=== PATIENT | male | born 1985 | race Caucasian/White ===

== ENCOUNTER 2018-08-29 22:02 | Emergency (ER) | payer OTHER, SELFPAY ==
--- NOTE | 2018-08-29 23:19 | EDPHYS ---
Physician Documentation [facility] Name: Danyel Guy Age: 32 yrs Sex: Male : 1985 Arrival Date: 08/29/2018 Time: 22:19 Bed 28 Private MD: ED Physician Jhonathan Watts HPI: 08/29 23:14 This 32 yrs old Male presents to ER via Ambulatory with complaints of unable jr8 to close hands. 23:14 Onset: The symptoms/episode began/occurred acutely, today. Modifying factors: The jr8 symptoms are alleviated by nothing, the symptoms are aggravated by movement. Associated signs and symptoms: The patient has no apparent associated signs or symptoms. The patient has not experienced similar symptoms in the past. Patient stated that he was moving heavy box and felt his hands near his thumbs pop on both sides. Since then has had pain and decreased ROM to both hands . Historical: - Allergies: 22:41 No Known Allergies; bb - Home Meds: 22:41 None [Active]; bb - PMHx: 22:41 Diabetes - NIDDM; bb - PSHx: 22:41 Tonsillectomy; bb - Immunization history:: Adult Immunizations up to date. - Social history:: Smoking status: Patient uses tobacco products, 3 cigarettes a day, Patient uses street drugs, marijuana. - Ebola Screening: : No symptoms or risks identified at this time. ROS: 23:14 Eyes: Negative for injury, pain, redness, and discharge, ENT: Negative for injury, jr8 pain, and discharge, Neck: Negative for injury, pain, and swelling, Cardiovascular: Negative for chest pain, palpitations, and edema, Respiratory: Negative for shortness of breath, cough, wheezing, and pleuritic chest pain, Abdomen/GI: Negative for abdominal pain, nausea, vomiting, diarrhea, and constipation, Back: Negative for injury and pain, Skin: Negative for injury, rash, and discoloration, Neuro: Negative for headache, weakness, numbness, tingling, and seizure. 23:14 MS/extremity: Positive for pain, tenderness, of the right hand and left hand. Exam: 23:14 Eyes: Pupils equal round and reactive to light, extra-ocular motions intact. Lids and jr8 lashes normal. Conjunctiva and sclera are non-icteric and not injected. Cornea within normal limits. Periorbital areas with no swelling, redness, or edema. ENT: Nares patent. No nasal discharge, no septal abnormalities noted. Tympanic membranes are normal and external auditory canals are clear. Oropharynx with no redness, swelling, or masses, exudates, or evidence of obstruction, uvula midline. Mucous membranes moist. Neck: Trachea midline, no thyromegaly or masses palpated, and no cervical lymphadenopathy. Supple, full range of motion without nuchal rigidity, or vertebral point tenderness. No Meningismus. Cardiovascular: Regular rate and rhythm with a normal S1 and S2. No gallops, murmurs, or rubs. Normal PMI, no JVD. No pulse deficits. Respiratory: Lungs have equal breath sounds bilaterally, clear to auscultation and percussion. No rales, rhonchi or wheezes noted. No increased work of breathing, no retractions or nasal flaring. Abdomen/GI: Soft, non-tender, with normal bowel sounds. No distension or tympany. No guarding or rebound. No evidence of tenderness throughout. Back: No spinal tenderness. No costovertebral tenderness. Full range of motion. Skin: Warm, dry with normal turgor. Normal color with no rashes, no lesions, and no evidence of cellulitis. Neuro: Awake and alert, GCS 15, oriented to person, place, time, and situation. Cranial nerves II-XII grossly intact. Motor strength 5/5 in all extremities. Sensory grossly intact. Cerebellar exam normal. Normal gait. 23:14 Musculoskeletal/extremity: Extremities: grossly normal except: noted in the left hand and right hand: Patient has tenderness to the MCP and CMC with external signs of trauma to both hands. Pain with ROM but not decreased. Sensory and pulses intact. Vital Signs: 22:41 BP 127 / 99; Pulse 73; Resp 16 S; Temp 98.5(O); Pulse Ox 99% on R/A; Weight 91.17 kg bb (R); Height 5 ft. 5 in. (165.10 cm) (R); Pain 7/10; 22:41 Body Mass Index 33.45 (91.17 kg, 165.10 cm) bb MDM: 23:14 Patient medically screened. [facility] 23:14 Data reviewed: vital signs, nurses notes, and as a result, I will discharge patient. jr8 Data interpreted: Pulse oximetry: on room air is 99 %. Interpretation: normal. Counseling: I had a detailed discussion with the patient and/or guardian regarding: the historical points, exam findings, and any diagnostic results supporting the discharge/admit diagnosis, the need for outpatient follow up, a hand specialist, to return to the emergency department if symptoms worsen or persist or if there are any questions or concerns that arise at home. Administered Medications: No medications were administered Disposition: 08/29/18 23:18 Discharged to Home. Impression: Pain in right hand, Pain in left hand. - Condition is Stable. - Discharge Instructions: Hand Pain. - Prescriptions for Mobic 15 mg Oral tablet - take 1 tablet by ORAL route once daily As needed; 12 tablet. - Medication Reconciliation Form, Thank You Letter, Antibiotic Education, Prescription Opioid Use form. - Follow up: Private Physician; When: 5 - 6 days; Reason: Recheck today's complaints, Continuance of care, Re-evaluation by your physician. - Problem is new. - Symptoms have improved. Addendum: 08/31/2018 01:30 Co-signature as Attending Physician, Jhonathan Watts MD. g s Signatures: Audra Meeir RN RN bb Rodney Moore PA PA jr8 Jhonathan Watts MD MD gs Vicente, Ronaldo, RN RN rv Corrections: (The following items were deleted from the chart) 08/29 23:23 23:18 08/29/2018 23:18 Discharged to Home. Impression: Pain in right hand; Pain in left rv hand. Condition is Stable. Forms are Medication Reconciliation Form, Thank You Letter, Antibiotic Education, Prescription Opioid Use. Follow up: Private Physician; When: 5 - 6 days; Reason: Recheck today's complaints, Continuance of care, Re-evaluation by your physician. Problem is new. Symptoms have improved. jr8
--- NOTE | 2018-08-29 23:19 | ER ---
Nurse's Notes [facility] Name: Danyel Guy Age: 32 yrs Sex: Male : 1985 Arrival Date: 08/29/2018 Time: 22:19 Bed 28 Private MD: Diagnosis: Pain in right hand;Pain in left hand Presentation: 08/29 22:39 Presenting complaint: Patient states: he has been having bilateral hand pain for about bb a month now but tonight he was lifting a box and felt something pop in the base of both thumbs and the pain is much worse to the point he is having difficulty closing his hands. Transition of care: patient was not received from another setting of care. Onset of symptoms was August 29, 2018. Risk Assessment: Do you want to hurt yourself or someone else? Patient reports no desire to harm self or others. Initial Sepsis Screen: Does the patient meet any 2 criteria? No. Patient's initial sepsis screen is negative. Does the patient have a suspected source of infection? No. Patient's initial sepsis screen is negative. Care prior to arrival: None. 22:39 Method Of Arrival: Ambulatory bb 22:39 Acuity: WILLIAM 3 bb Historical: - Allergies: 22:41 No Known Allergies; bb - Home Meds: 22:41 None [Active]; bb - PMHx: 22:41 Diabetes - NIDDM; bb - PSHx: 22:41 Tonsillectomy; bb - Immunization history:: Adult Immunizations up to date. - Social history:: Smoking status: Patient uses tobacco products, 3 cigarettes a day, Patient uses street drugs, marijuana. - Ebola Screening: : No symptoms or risks identified at this time. Screenin:22 Abuse screen: Denies threats or abuse. Denies injuries from another. Nutritional rv screening: No deficits noted. Tuberculosis screening: No symptoms or risk factors identified. Fall Risk None identified. Assessment: 23:21 General: Appears in no apparent distress. comfortable, Behavior is calm, cooperative. rv Pain: Complains of pain in left hand and right hand. Neuro: Level of Consciousness is awake, alert, obeys commands, Oriented to person, place, time, situation. Cardiovascular: Capillary refill < 3 seconds. Respiratory: Airway is patent. GI: No signs and/or symptoms were reported involving the gastrointestinal system. : No signs and/or symptoms were reported regarding the genitourinary system. EENT: No signs and/or symptoms were reported regarding the EENT system. Derm: Skin is intact. Musculoskeletal: Reports pain in left hand and right hand. Vital Signs: 22:41 BP 127 / 99; Pulse 73; Resp 16 S; Temp 98.5(O); Pulse Ox 99% on R/A; Weight 91.17 kg bb (R); Height 5 ft. 5 in. (165.10 cm) (R); Pain 7/10; 22:41 Body Mass Index 33.45 (91.17 kg, 165.10 cm) bb ED Course: 22:19 Patient arrived in ED. es 22:40 Triage completed. bb 22:41 Arm band placed on Patient placed in an exam room, on a stretcher, on pulse oximetry. bb Family accompanied patient. 22:50 Rodney Moore PA is PHCP. jr 22:50 Jhonathan Watts MD is Attending Physician. jr 22:53 Parish Thomas RN is Primary Nurse. rv 23:22 Patient has correct armband on for positive identification. Bed in low position. Call rv light in reach. Side rails up X 1. Adult w/ patient. Pulse ox on. NIBP on. 23:22 No provider procedures requiring assistance completed. Patient did not have IV access rv during this emergency room visit. Administered Medications: No medications were administered Outcome: 23:18 Discharge ordered by . jr8 23:22 Discharged to home ambulatory. rv 23:22 Condition: good 23:22 Discharge instructions given to patient, Instructed on discharge instructions, follow up and referral plans. medication usage, Demonstrated understanding of instructions, follow-up care, medications, Prescriptions given X 1. 23:23 Patient left the ED. rv Signatures: Snow Mcgrath Brenda, RN RN bb Rodney Moore PA PA jr8 Parish Thomas RN RN rv
[2018-08-29 23:28] VITALS: BP 127/99; TEMP 98.5; O2SAT 99
== END 2018-08-29 23:23 | disposition home or self-care (01) ==
LOC: ER 22:02
DX: M79.642 Pain in left hand (principal); M79.641 Pain in right hand; E11.9 Type 2 diabetes mellitus without complications; Z72.0 Tobacco use
CPT/HCPCS: 99283

== ENCOUNTER 2019-08-19 10:42 | Emergency (ER) | payer OTHER, SELFPAY ==
[2019-08-19] MEDS ORDERED: DIAZEPAM 5 MG TABLET ONE (11:17)
--- NOTE | 2019-08-19 11:49 | RAD REPORT ---
EXAM DESCRIPTION: RAD - Chest Single View - 08/19/2019 11:24 am CLINICAL HISTORY: SOB COMPARISON: March 2014 TECHNIQUE: AP portable chest image was obtained 08/19/2019 11:24 am . FINDINGS: Lungs are underinflated which accentuates the interstitial pattern. This could potentially mask a very minimal edema or infiltrate. No significant failure or volume overload. No mass or conso lidations seen. Heart size is upper normal, accentuated by portable technique and shallow inspiration. Vasculature wi thin normal limits. No measurable pleural effusion and no pneumothorax. No acute bony abnormality see n. No acute aortic findings suspected. IMPRESSION: Limited shallow inspiration film without significant cardiopulmonary finding. Low lung volumes accentuate the baseline interstitial pattern potentially masking very minimal edema or infiltrate.
--- NOTE | 2019-08-19 12:24 | RAD REPORT ---
EXAM DESCRIPTION: RAD - Chest Pa And Lat (2 Views) - 08/19/2019 12:11 pm CLINICAL HISTORY: DYSPNEA COMPARISON: Portable August 18, two view chest March 2014 TECHNIQUE: Frontal and lateral views of the chest were obtained. FINDINGS: The lungs are better aerated on this two-view examination. No mass, consolidation, failure or volume overload. Interstitial pattern matches the 2014 comparison. Heart size is normal and misael tral vasculature is within normal limits. No pleural effusion or pneumothorax seen. No acute bony f inding noted. No aortic abnormality. IMPRESSION: Lungs are better aerated than earlier study. No acute cardiopulmonary finding seen. No significant changes are noted when comparing back to 2013.
--- NOTE | 2019-08-19 12:56 | ER ---
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 Pt also reports aa5 headache and catrina arm pain. 10:46 Coronavirus screen: Patient denies a cough. Patient reports shortness of breath or aa5 difficulty breathing. Patient denies measured and/or subjective temperature greater than 100.4F prior to today's visit. Patient denies travel on a cruise ship or to a country the [facility] currently lists as an affected area. Patient denies contact with known and/or suspected case of COVID-19. Ebola Screen: Patient negative for fever greater than or equal to 101.5 degrees Fahrenheit, and additional compatible Ebola Virus Disease symptoms. Initial Sepsis Screen: Does the patient meet any 2 criteria? RR > 20 per min. Does the patient have a suspected source of infection? No. Patient's initial sepsis screen is negative. Risk Assessment: Do you want to hurt yourself or someone else? Patient reports no desire to harm self or others. Onset of symptoms was August 2019. 10:46 Method Of Arrival: Ambulatory aa5 10:46 Acuity: WILLIAM 3 aa5 Historical: - Allergies: 10:46 No Known Allergies; aa5 - PMHx: 10:46 Diabetes - NIDDM; "mental illness"; aa5 - PSHx: 10:46 Tonsillectomy; aa5 - Immunization history:: Flu vaccine status is unknown. - Social history:: Smoking status: Patient reports the use of cigarette tobacco products, 1 pack a week/ quit 1 month ago . Screenin:06 Abuse screen: Denies threats or abuse. Nutritional screening: No deficits noted. em Tuberculosis screening: No symptoms or risk factors identified. Fall Risk None identified. Assessment: 11:07 General: Appears in no apparent distress. uncomfortable, well groomed, well developed, em well nourished, Behavior is calm, cooperative, appropriate for age, Reports feeling anxious, reports similar episode Denies fever. Pain: Complains of pain in right arm and left arm Pain currently is 5 out of 10 on a pain scale. Pain began 1 hour ago. Neuro: Level of Consciousness is awake, alert, obeys commands, Oriented to person, place, time, situation, Appropriate for age Reports dizziness, headache. Cardiovascular: Reports shortness of breath, Denies chest pain, Capillary refill < 3 seconds Patient's skin is warm and dry. Rhythm is regular. Respiratory: Reports shortness of breath at rest Airway is patent Respiratory effort is even, unlabored, Respiratory pattern is regular, symmetrical, Breath sounds are clear bilaterally. Denies cough. GI: Patient currently denies nausea, vomiting. Derm: Skin is intact, is healthy with good turgor, Skin is pink, warm \\T\\ dry. Musculoskeletal: Capillary refill < 3 seconds, Range of motion: intact in all extremities. 12:02 Reassessment: wheeled to x-ray. em 12:23 Reassessment: Patient appears in no apparent distress at this time. Patient and/or em family updated on plan of care and expected duration. Pain level reassessed. Patient is alert, oriented x 3, equal unlabored respirations, skin warm/dry/pink. Patient states feeling better. Vital Signs: 10:46 BP 135 / 89; Pulse 88; Resp 16 S; Temp 98.3(O); Pulse Ox 99% on R/A; Weight 97.52 kg aa5 (R); Height 5 ft. 5 in. (165.10 cm) (R); Pain 5/10; 11:53 BP 127 / 83; Pulse 80; Resp 16; Temp 98.5(TE); Pulse Ox 97% on R/A; mh5 12:53 BP 106 / 53; Pulse 80; Resp 16; Temp 97.9(TE); Pulse Ox 98% on R/A; mh5 10:46 Body Mass Index 35.78 (97.52 kg, 165.10 cm) aa5 ED Course: 10:43 Patient arrived in ED. mr 10:44 None, None is Private Physician. mr 10:46 Arm band placed on Patient placed in an exam room, on a stretcher. aa5 10:47 Luis Riley RN is Primary Nurse. em 10:50 Miller Gallardo MD is Attending Physician. kdr 10:56 Triage completed. aa5 11:06 Patient has correct armband on for positive identification. Placed in gown. Bed in low em position. Call light in reach. Pulse ox on. NIBP on. 11:10 Flu and/or RSV swab sent to lab. sg 11:24 CXR XRAY In Process Unspecified. EDMS 12:08 Chest Pa And Lat (2 Views) XRAY In Process Unspecified. EDMS 13:20 No provider procedures requiring assistance completed. Patient did not have IV access em during this emergency room visit. Administered Medications: 11:14 Drug: Valium 5 mg Route: PO; em 12:23 Follow up: Response: No adverse reaction; Marked relief of symptoms; Anxiety decreased em Outcome: 12:55 Discharge ordered by . kdr 13:20 Discharged to home ambulatory. em 13:20 Condition: good 13:20 Discharge instructions given to patient, Instructed on discharge instructions, follow up and referral plans. Demonstrated understanding of instructions, follow-up care. 13:20 Patient left the ED. em Signatures: Dispatcher [employer] EDMI Josue Pruitt, EWELINA RN Miller Gallardo MD MD kdr Rivera, Mary mr Munoz, Edgar, RN RN Nisa Leal RN RN wild Lucie Couch [facility] Corrections: (The following items were deleted from the chart) 10:53 10:40 Arm band placed on aa5 aa5 11:09 11:07 General: Appears in no apparent distress. uncomfortable, well groomed, well em developed, well nourished, Behavior is calm, cooperative, appropriate for age, Denies fever, em 12:02 12:01 Reassessment: Patient appears in no apparent distress at this time. Patient em and/or family updated on plan of care and expected duration. Pain level reassessed. Patient is alert, oriented x 3, equal unlabored respirations, skin warm/dry/pink. nausea has improved em
--- NOTE | 2019-08-19 12:57 | EDPHYS ---
Physician Documentation [facility] Name: Danyel Guy Age: 33 yrs Sex: Male : 1985 Arrival Date: 08/19/2019 Time: 10:43 Bed 5 Private MD: None, None ED Physician Miller Gallardo HPI: 08/18 11:27 This 33 yrs old Male presents to ER via Ambulatory with complaints of kdr Breathing Difficulty, Dizziness. 11:27 The patient has shortness of breath at rest, with light activity, that occurred at kdr work, Works in the [employer]. Onset: The symptoms/episode began/occurred suddenly, this morning. Duration: The symptoms are continuous, and are unchanged since they started. The patient's shortness of breath is aggravated by nothing, is alleviated by nothing. Associated signs and symptoms: The patient has no apparent associated signs or symptoms. Severity of symptoms: At their worst the symptoms were moderate in the emergency department the symptoms are unchanged. The patient has not experienced similar symptoms in the past. The patient has not recently seen a physician. Has had anxiety attacks before but states that this does not feel like anxiety - just can't get his breath.. Historical: - Allergies: 10:46 No Known Allergies; aa5 - PMHx: 10:46 Diabetes - NIDDM; "mental illness"; aa5 - PSHx: 10:46 Tonsillectomy; aa5 - Immunization history:: Flu vaccine status is unknown. - Social history:: Smoking status: Patient reports the use of cigarette tobacco products, 1 pack a week/ quit 1 month ago . ROS: 11:27 Constitutional: Negative for fever, chills, and weight loss, Eyes: Negative for injury, kdr pain, redness, and discharge, ENT: Negative for injury, pain, and discharge, Neck: Negative for injury, pain, and swelling, Cardiovascular: Negative for chest pain, palpitations, and edema, Abdomen/GI: Negative for abdominal pain, nausea, vomiting, diarrhea, and constipation, Back: Negative for injury and pain, : Negative for injury, bleeding, discharge, and swelling, MS/Extremity: Negative for injury and deformity, Skin: Negative for injury, rash, and discoloration, Neuro: Negative for headache, weakness, numbness, tingling, and seizure activity. Psych: Negative for depression, anxiety, suicide ideation, homicidal ideation, and hallucinations, Allergy/Immunology: Negative for hives, rash, and allergies, Endocrine: Negative for neck swelling, polydipsia, polyuria, polyphagia, and marked weight changes, Hematologic/Lymphatic: Negative for swollen nodes, abnormal bleeding, and unusual bruising. 11:27 Respiratory: Positive for shortness of breath, Negative for cough, dyspnea on exertion, hemoptysis, orthopnea, pleurisy, sputum production, wheezing. Exam: 11:27 Constitutional: This is a well developed, well nourished patient who is awake, alert, kdr and in mild distress. Head/Face: Normocephalic, atraumatic. Eyes: Pupils equal round and reactive to light, extra-ocular motions intact. Lids and lashes normal. Conjunctiva and sclera are non-icteric and not injected. Cornea within normal limits. Periorbital areas with no swelling, redness, or edema. Neck: Trachea midline, no thyromegaly or masses palpated, and no cervical lymphadenopathy. Supple, full range of motion without nuchal rigidity, or vertebral point tenderness. No Meningismus. Chest/axilla: Normal chest wall appearance and motion. Nontender with no deformity. No lesions are appreciated. Cardiovascular: Regular rate and rhythm with a normal S1 and S2. No gallops, murmurs, or rubs. Normal PMI, no JVD. No pulse deficits. Respiratory: Lungs have equal breath sounds bilaterally, clear to auscultation and percussion. No rales, rhonchi or wheezes noted. No increased work of breathing, no retractions or nasal flaring. Abdomen/GI: Soft, non-tender, with normal bowel sounds. No distension or tympany. No guarding or rebound. No evidence of tenderness throughout. Back: No spinal tenderness. No costovertebral tenderness. Full range of motion. Skin: Warm, dry with normal turgor. Normal color with no rashes, no lesions, and no evidence of cellulitis. MS/ Extremity: Pulses equal, no cyanosis. Neurovascular intact. Full, normal range of motion. Neuro: Awake and alert, GCS 15, oriented to person, place, time, and situation. Cranial nerves II-XII grossly intact. Motor strength 5/5 in all extremities. Sensory grossly intact. Cerebellar exam normal. Normal gait. Psych: Awake, alert, with orientation to person, place and time. Behavior, mood, and affect are within normal limits. Vital Signs: 10:46 BP 135 / 89; Pulse 88; Resp 16 S; Temp 98.3(O); Pulse Ox 99% on R/A; Weight 97.52 kg aa5 (R); Height 5 ft. 5 in. (165.10 cm) (R); Pain 5/10; 11:53 BP 127 / 83; Pulse 80; Resp 16; Temp 98.5(TE); Pulse Ox 97% on R/A; mh5 12:53 BP 106 / 53; Pulse 80; Resp 16; Temp 97.9(TE); Pulse Ox 98% on R/A; mh5 10:46 Body Mass Index 35.78 (97.52 kg, 165.10 cm) aa5 MDM: 11:27 Data reviewed: vital signs, nurses notes, lab test result(s), radiologic studies. kdr 12:55 Patient medically screened. kdr 08/18 11:07 Order name: Flu; Complete Time: 11:55 kdr 08/18 11:07 Order name: CXR XRAY; Complete Time: 11:55 kdr 08/18 11:57 Order name: Chest Pa And Lat (2 Views) XRAY; Complete Time: 12:29 kdr Administered Medications: 11:14 Drug: Valium 5 mg Route: PO; em 12:23 Follow up: Response: No adverse reaction; Marked relief of symptoms; Anxiety decreased em Disposition: 08/19/19 12:55 Discharged to Home. Impression: Dyspnea, Anxiety disorder, unspecified. - Condition is Stable. - Discharge Instructions: Shortness of Breath, [id number], Generalized Anxiety Disorder. - Medication Reconciliation Form, Thank You Letter, Work release form form. - Follow up: Private Physician; When: 2 - 3 days; Reason: If symptoms return, Further diagnostic work-up, Recheck today's complaints, Continuance of care, Re-evaluation by your physician. - Problem is new. - Symptoms have improved. Signatures: Dispatcher [employer] EDMS Miller Gallardo MD MD [facility] Luis Riley RN RN Nisa Rivas RN RN aa5 Corrections: (The following items were deleted from the chart) 13:04 12:55 08/19/2019 12:55 Discharged to Home. Impression: Dyspnea. Condition is Stable. kdr Forms are Medication Reconciliation Form, Thank You Letter, Antibiotic Education, Prescription Opioid Use. Follow up: Private Physician; When: 2 - 3 days; Reason: If symptoms return, Further diagnostic work-up, Recheck today's complaints, Continuance of care, Re-evaluation by your physician. Problem is new. Symptoms have improved. kdr 13:20 13:04 08/19/2019 12:55 Discharged to Home. Impression: Dyspnea; Anxiety disorder, em unspecified. Condition is Stable. Discharge Instructions: Shortness of Breath, [id number], Generalized Anxiety Disorder. Forms are Medication Reconciliation Form, Thank You Letter. Follow up: Private Physician; When: 2 - 3 days; Reason: If symptoms return, Further diagnostic work-up, Recheck today's complaints, Continuance of care, Re-evaluation by your physician. Problem is new. Symptoms have improved. kdr
[2019-08-19 13:29] VITALS: BP 106/53; TEMP 97.9; O2SAT 98
== END 2019-08-19 13:20 | disposition home or self-care (01) ==
LOC: ER 10:42
DX: F41.9 Anxiety disorder, unspecified (principal); F17.210 Nicotine dependence, cigarettes, uncomplicated; E11.9 Type 2 diabetes mellitus without complications
CPT/HCPCS: 71045; 71046; 87804; 99284

== ENCOUNTER 2020-01-14 14:32 | Emergency (ER) | payer OTHER ==
[2020-01-14 16:15] LABS: Absolute Lymphocytes (CBC) 1.8 K/uL (0.7-4.9); Basophils % 0.5 % (0-1.3); Hematocrit 44.4 % (39.6-49.0); Lymphocytes % 31.4 % (15.3-44.8); MPV 9.3 fL (7.6-11.3); RBC Red Blood Cell Count 5.16 M/uL (4.33-5.43)
[2020-01-14] MEDS ORDERED: DIPHENHYDRAMINE 50 MG/ML VIAL ONE (16:21)
[2020-01-14] MEDS ORDERED: METOCLOPRAMIDE 10 MG/2mL INJ ONE (16:21)
[2020-01-14] MEDS ORDERED: KETOROLAC 30 MG/ML INJ ONE (16:22)
[2020-01-14] MEDS ORDERED: NA CHLORIDE 0.9% 1,000 ML ONE ×2 (16:22→16:55)
[2020-01-14 16:33] LABS: ALT/SGPT 40 U/L (12-78); AST/SGOT 13 U/L (15-37); Albumin 3.9 g/dL (3.4-5.0); Alkaline Phosphatase 54 U/L (45-117); BUN Blood Urea Nitrogen 14 mg/dL (7-18); Bicarbonate 27 mmol/L (21-32); Bilirubin Total 0.5 mg/dL (0.2-1.0); Glucose Level 303 mg/dL (74-106); Potassium 3.8 mmol/L (3.5-5.1); Protein, Total 7.7 g/dL (6.4-8.2); Sodium Level 138 mmol/L (136-145)
--- NOTE | 2020-01-14 16:49 | RAD REPORT ---
EXAM DESCRIPTION: CT - Head Brain Wo Cont - 01/14/2020 4:15 pm CLINICAL HISTORY: HEADACHE Headache, drowsiness COMPARISON: No comparisons TECHNIQUE: All CT scans are performed using dose optimization technique as appropriate and may inclu de automated exposure control or mA/KV adjustment according to patient size. FINDINGS: No intracranial hemorrhage, hydrocephalus or extra-axial fluid collection.No areas of brai n edema or evidence of midline shift. The paranasal sinuses and mastoids are clear. The calvarium is intact. IMPRESSION: No acute intracranial abnormality.
--- NOTE | 2020-01-14 16:59 | ER ---
Nurse's Notes [facility] Name: Danyel Guy Age: 34 yrs Sex: Male : 1985 Arrival Date: 01/14/2020 Time: 14:34 Bed 7 Private MD: Diagnosis: Cluster headache syndrome, unspecified;Cluster headache syndrome, unspecified, not intractable;Type 2 diabetes mellitus Presentation: 01/13 14:50 Chief complaint: Patient states: having severe headaches, diagnosed with cluster iw headaches, radiates from left eye to base of neck on left side, these headaches started last Thursday and feel worse than the cluster h/a, was prescribed medication via teledoc , no relief. Coronavirus screen: At this time, the client does not indicate any symptoms associated with coronavirus-19. Ebola Screen: Patient negative for fever greater than or equal to 101.5 degrees Fahrenheit, and additional compatible Ebola Virus Disease symptoms Patient denies exposure to infectious person. Patient denies travel to an Ebola-affected area in the 21 days before illness onset. No symptoms or risks identified at this time. Initial Sepsis Screen: Does the patient meet any 2 criteria? No. Patient's initial sepsis screen is negative. Does the patient have a suspected source of infection? No. Patient's initial sepsis screen is negative. Risk Assessment: Do you want to hurt yourself or someone else? Patient reports no desire to harm self or others. Onset of symptoms was January 06, 2020. 14:50 Method Of Arrival: Ambulatory iw 14:50 Acuity: WILLIAM 3 iw Triage Assessment: 14:50 Headache History: The patient has had previous headaches. General: Appears. iw 15:50 General: Behavior is calm, cooperative, appropriate for age. Pain: Pain began 2-3 days ll2 ago. Also complains of no other associated symptoms. Historical: - Allergies: 14:53 No Known Allergies; iw - Home Meds: 14:53 Imitrex 50 mg Oral tab 1 tab [Active]; iw - PMHx: 14:53 "mental illness"; Diabetes - NIDDM; cluster headaches; iw - PSHx: 14:53 Tonsillectomy; iw 14:53 surgery to prevent testicular torsion; iw - Immunization history:: Adult Immunizations Adult Immunizations not up to date. - Social history:: Smoking status: Smoking status: Patient reports the use of cigarette tobacco products, denies chronic smoking, but will smoke occasionally. - Family history:: pertinent for. Screenin:49 Abuse screen: Denies threats or abuse. Nutritional screening: No deficits noted. ll2 Tuberculosis screening: No symptoms or risk factors identified. Fall Risk None identified. Assessment: 15:44 General: Appears in no apparent distress. Behavior is calm, cooperative, appropriate ll2 for age. General: pt states, "I have a hx of cluster headaches, I take Imitrex for them but they absolutely do not work and the pain was unbearable so I came in today.". Pain: Complains of pain in forehead, right anglican, left anglican, left frontal area, left side of the back of head, left temporal area and scalp Pain currently is 9 out of 10 on a pain scale. Neuro: Level of Consciousness is awake, alert, obeys commands, Oriented to person, place, time, situation. Cardiovascular: Capillary refill < 3 seconds Patient's skin is warm and dry. Respiratory: Airway is patent Respiratory effort is even, unlabored, Respiratory pattern is regular, symmetrical. GI: No signs and/or symptoms were reported involving the gastrointestinal system. : No signs and/or symptoms were reported regarding the genitourinary system. EENT: No signs and/or symptoms were reported regarding the EENT system. Derm: Skin is intact, is healthy with good turgor, Skin is dry, Skin is pink, warm \\T\\ dry. Skin temperature is warm. Musculoskeletal: Circulation, motion, and sensation intact. Range of motion: intact in all extremities. 16:39 Reassessment: No changes from previously documented assessment. Patient and/or family ll2 updated on plan of care and expected duration. Pain level reassessed. Patient is alert, oriented x 3, equal unlabored respirations, skin warm/dry/pink. Pain: Pain currently is 4 out of 10 on a pain scale. 17:00 Reassessment: Pt will be discharged after fluids are done infusing. jl7 Vital Signs: 14:50 BP 126 / 93; Pulse 81; Resp 16; Temp 98.9; Pulse Ox 96% on R/A; Weight 90.72 kg; Height iw 5 ft. 5 in. (165.10 cm); Pain 9/10; 15:48 BP 129 / 98; Pulse 78; Resp 14; Temp 98.9; Pulse Ox 99% on R/A; Pain 9/10; ll2 16:51 BP 122 / 80; Pulse 62; Resp 15; Pulse Ox 100% ; jl7 17:54 BP 110 / 79; Pulse 59; Resp 12; Pulse Ox 98% on R/A; Pain 1/10; ll2 14:50 Body Mass Index 33.28 (90.72 kg, 165.10 cm) iw Lawler Coma Score: 15:54 Eye Response: spontaneous(4). Verbal Response: oriented(5). Motor Response: obeys kelsea commands(6). Total: 15. ED Course: 14:34 Patient arrived in ED. ds1 14:52 Triage completed. iw 14:53 Arm band placed on. iw 14:55 Yossi Wiggins MD is Attending Physician. kelsea 15:44 Maddison Sorto RN is Primary Nurse. ll2 15:49 Patient has correct armband on for positive identification. Bed in low position. Call ll2 light in reach. Side rails up X 1. manager monitoring on. Pulse ox on. NIBP on. 16:15 CT Head Brain wo Cont In Process Unspecified. EDMS 16:39 Inserted saline lock: 20 gauge in left antecubital area, using aseptic technique. ll2 16:59 Armani Pacheco MD is Referral Physician. kelsea 18:10 No provider procedures requiring assistance completed. IV discontinued, intact, ll2 bleeding controlled, No redness/swelling at site. Pressure dressing applied. Administered Medications: 16:32 Drug: TORadol 30 mg Route: IVP; Site: left antecubital; ll2 16:38 Follow up: Response: No adverse reaction ll2 16:32 Drug: Reglan 10 mg Route: IVP; Site: left antecubital; ll2 16:38 Follow up: Response: No adverse reaction ll2 16:32 Drug: Benadryl 50 mg Route: IVP; Site: left antecubital; ll2 16:38 Follow up: Response: No adverse reaction ll2 16:33 Drug: NS 0.9% 1000 ml Route: IV; Rate: 1 bolus; Site: left antecubital; ll2 16:38 Follow up: Response: No adverse reaction ll2 18:11 Follow up: Response: No adverse reaction; IV Status: Completed infusion; IV Intake: ll2 1000ml 16:46 Drug: NS 0.9% 1000 ml Route: IV; Rate: 1 bolus; Site: left antecubital; ll2 18:10 Follow up: IV Status: Completed infusion; IV Intake: 1000ml ll2 18:11 Follow up: Response: No adverse reaction ll2 Intake: 18:10 IV: 1000ml; Total: 1000ml. ll2 18:11 IV: 1000ml; Total: 2000ml. ll2 Outcome: 16:59 Discharge ordered by . kelsea 18:11 Discharged to home ambulatory. ll2 18:11 Condition: stable 18:11 Discharge instructions given to patient, Instructed on discharge instructions, follow up and referral plans. medication usage, Demonstrated understanding of instructions, follow-up care, medications, Prescriptions given X 2. 18:12 Patient left the ED. ll2 Signatures: Dispatcher [employer] EDMS Yossi Wiggins MD MD cha Sanford, Avani ds1 Lilly Ang RN RN iw Amie Washburn RN RN jl7 Maddison Sorto RN RN ll2 Corrections: (The following items were deleted from the chart) 15:51 15:44 General: pr states, "I have a hx of cluster headaches, I take Imitrex for them ll2 but they absolutely do not work and the pain was unbearable so I came in today.". ll2
--- NOTE | 2020-01-14 17:00 | EDPHYS ---
Physician Documentation [facility] Name: Danyel Guy Age: 34 yrs Sex: Male : 1985 Arrival Date: 01/14/2020 Time: 14:34 Bed 7 Private MD: KEVIN Physician Yossi Wiggins HPI: 01/13 15:51 This 34 yrs old Male presents to ER via Ambulatory with complaints of kelsea Headache. 15:51 The patient complains of pain to the forehead, right restorationism, left restorationism, left frontal kelsea area, left temporal area, right frontal area and right temporal area. The patient describes the headache as aching, constant. Onset: The symptoms/episode began/occurred 2 day(s) ago. Associated signs and symptoms: The patient has no apparent associated signs or symptoms. Severity of symptoms: At its worst the pain was moderate, in the emergency department the pain is unchanged. Headache History: The patient has had previous headaches and this one is similar to previous episodes. The symptoms are alleviated by Darkened room, quiet, remaining still. The patient has experienced similar episodes in the past, several times. Historical: - Allergies: 14:53 No Known Allergies; iw - Home Meds: 14:53 Imitrex 50 mg Oral tab 1 tab [Active]; iw - PMHx: 14:53 "mental illness"; Diabetes - NIDDM; cluster headaches; iw - PSHx: 14:53 Tonsillectomy; iw 14:53 surgery to prevent testicular torsion; iw - Immunization history:: Adult Immunizations Adult Immunizations not up to date. - Social history:: Smoking status: Smoking status: Patient reports the use of cigarette tobacco products, denies chronic smoking, but will smoke occasionally. - Family history:: pertinent for. ROS: 15:51 Constitutional: Negative for fever, chills, and weight loss, Eyes: Negative for injury, kelsea pain, redness, and discharge, ENT: Negative for injury, pain, and discharge, Neck: Negative for injury, pain, and swelling, Cardiovascular: Negative for chest pain, palpitations, and edema, Respiratory: Negative for shortness of breath, cough, wheezing, and pleuritic chest pain, Abdomen/GI: Negative for abdominal pain, nausea, vomiting, diarrhea, and constipation, Back: Negative for injury and pain, : Negative for injury, bleeding, discharge, and swelling, MS/Extremity: Negative for injury and deformity, Skin: Negative for injury, rash, and discoloration, Psych: Negative for depression, anxiety, suicide ideation, homicidal ideation, and hallucinations, Allergy/Immunology: Negative for hives, rash, and allergies, Endocrine: Negative for neck swelling, polydipsia, polyuria, polyphagia, and marked weight changes, Hematologic/Lymphatic: Negative for swollen nodes, abnormal bleeding, and unusual bruising. 15:51 Neuro: Positive for headache. Exam: 15:51 Constitutional: This is a well developed, well nourished patient who is awake, alert, kelsea and in no acute distress. Head/Face: Normocephalic, atraumatic. Eyes: Pupils equal round and reactive to light, extra-ocular motions intact. Lids and lashes normal. Conjunctiva and sclera are non-icteric and not injected. Cornea within normal limits. Periorbital areas with no swelling, redness, or edema. ENT: Nares patent. No nasal discharge, no septal abnormalities noted. Tympanic membranes are normal and external auditory canals are clear. Oropharynx with no redness, swelling, or masses, exudates, or evidence of obstruction, uvula midline. Mucous membranes moist. Neck: Trachea midline, no thyromegaly or masses palpated, and no cervical lymphadenopathy. Supple, full range of motion without nuchal rigidity, or vertebral point tenderness. No Meningismus. Chest/axilla: Normal chest wall appearance and motion. Nontender with no deformity. No lesions are appreciated. Cardiovascular: Regular rate and rhythm with a normal S1 and S2. No gallops, murmurs, or rubs. Normal PMI, no JVD. No pulse deficits. Respiratory: Lungs have equal breath sounds bilaterally, clear to auscultation and percussion. No rales, rhonchi or wheezes noted. No increased work of breathing, no retractions or nasal flaring. Abdomen/GI: Soft, non-tender, with normal bowel sounds. No distension or tympany. No guarding or rebound. No evidence of tenderness throughout. Back: No spinal tenderness. No costovertebral tenderness. Full range of motion. Male : Normal genitalia with no discharge or lesions. Skin: Warm, dry with normal turgor. Normal color with no rashes, no lesions, and no evidence of cellulitis. MS/ Extremity: Pulses equal, no cyanosis. Neurovascular intact. Full, normal range of motion. Neuro: Awake and alert, GCS 15, oriented to person, place, time, and situation. Cranial nerves II-XII grossly intact. Motor strength 5/5 in all extremities. Sensory grossly intact. Cerebellar exam normal. Normal gait. Psych: Awake, alert, with orientation to person, place and time. Behavior, mood, and affect are within normal limits. 15:51 Neck: ROM/movement: is normal, no acute changes, Meningeal signs: are not present, Kernig's sign is negative, Brudzinski's sign is negative. Vital Signs: 14:50 BP 126 / 93; Pulse 81; Resp 16; Temp 98.9; Pulse Ox 96% on R/A; Weight 90.72 kg; Height iw 5 ft. 5 in. (165.10 cm); Pain 9/10; 15:48 BP 129 / 98; Pulse 78; Resp 14; Temp 98.9; Pulse Ox 99% on R/A; Pain 9/10; ll2 16:51 BP 122 / 80; Pulse 62; Resp 15; Pulse Ox 100% ; jl7 17:54 BP 110 / 79; Pulse 59; Resp 12; Pulse Ox 98% on R/A; Pain 1/10; ll2 14:50 Body Mass Index 33.28 (90.72 kg, 165.10 cm) iw Vinton Coma Score: 15:54 Eye Response: spontaneous(4). Verbal Response: oriented(5). Motor Response: obeys kelsea commands(6). Total: 15. MDM: 14:56 Patient medically screened. kelsea 15:54 Differential diagnosis: intracerebral hemorrhage, meningitis, migraine, subarachnoid kelsea bleed, subdural hematoma, temporal arteritis, tension headache, trigeminal neuralgia, vasomotor headache. Data reviewed: vital signs, nurses notes, lab test result(s), EKG, radiologic studies, CT scan, plain films. Data interpreted: engine monitor: rate is 78 beats/min, rhythm is regular. Test interpretation: by ED physician or midlevel provider: ECG, plain radiologic studies. Counseling: I had a detailed discussion with the patient and/or guardian regarding: the historical points, exam findings, and any diagnostic results supporting the discharge/admit diagnosis, lab results, radiology results. 16:03 ED course: follow up , return if worse, rest x 2 days. [facility] 17:06 Medication response: reglan, toradol, benadryl great relief. [facility] 01/13 15:51 Order name: CBC with Diff; Complete Time: 16:34 [facility] 01/13 15:51 Order name: Comprehensive Metabolic Panel; Complete Time: 16:34 [facility] 01/13 15:51 Order name: CT Head Brain wo Cont; Complete Time: 16:58 [facility] 01/13 15:51 Order name: Oxygen; Complete Time: 16:22 [facility] Administered Medications: 16:32 Drug: TORadol 30 mg Route: IVP; Site: left antecubital; ll2 16:38 Follow up: Response: No adverse reaction ll2 16:32 Drug: Reglan 10 mg Route: IVP; Site: left antecubital; ll2 16:38 Follow up: Response: No adverse reaction ll2 16:32 Drug: Benadryl 50 mg Route: IVP; Site: left antecubital; ll2 16:38 Follow up: Response: No adverse reaction ll2 16:33 Drug: NS 0.9% 1000 ml Route: IV; Rate: 1 bolus; Site: left antecubital; ll2 16:38 Follow up: Response: No adverse reaction ll2 18:11 Follow up: Response: No adverse reaction; IV Status: Completed infusion; IV Intake: ll2 1000ml 16:46 Drug: NS 0.9% 1000 ml Route: IV; Rate: 1 bolus; Site: left antecubital; ll2 18:10 Follow up: IV Status: Completed infusion; IV Intake: 1000ml ll2 18:11 Follow up: Response: No adverse reaction ll2 Disposition: 01/14/20 16:59 Discharged to Home. Impression: Cluster headache syndrome, unspecified, Cluster headache syndrome, unspecified, not intractable, Type 2 diabetes mellitus. - Condition is Stable. - Discharge Instructions: Cluster Headache, [id number], Type 2 Diabetes Mellitus, Diagnosis, Adult, Cluster Headache, Type 2 Diabetes Mellitus, Diagnosis, Adult, [id number]. - Prescriptions for Fioricet with Codeine 50- 325-40-30 mg Oral capsule - take 1 capsule by ORAL route every 6 hours as needed not to exceed 6 capsules per 24hrs; 24 capsule. Zofran 4 mg Oral Tablet - take 1 tablet by ORAL route every 12 hours As needed; 14 tablet. - Work release form, Medication Reconciliation Form, Thank You Letter, Antibiotic Education, Prescription Opioid Use form. - Follow up: Private Physician; When: 1 - 2 days; Reason: Recheck today's complaints, Re-evaluation by your physician. Follow up: Armani Pacheco; When: 2 - 3 days; Reason: Recheck today's complaints, Re-evaluation by your physician. - Problem is new. - Symptoms have improved. Signatures: Dispatcher [employer] EDMS Yossi Wiggins MD MD cha Williams, Irene, EWELINA RN iw Maddison Sorto RN RN ll2 Corrections: (The following items were deleted from the chart) 18:12 16:59 01/14/2020 16:59 Discharged to Home. Impression: Cluster headache syndrome, ll2 unspecified; Cluster headache syndrome, unspecified, not intractable; Type 2 diabetes mellitus. Condition is Stable. Discharge Instructions: Cluster Headache, [id number], Cluster Headache, Type 2 Diabetes Mellitus, Diagnosis, Adult, Type 2 Diabetes Mellitus, Diagnosis, Adult, [id number]. Prescriptions for Fioricet with Codeine 41-836-24-30 mg Oral capsule - take 1 capsule by ORAL route every 6 hours as needed not to exceed 6 capsules per 24hrs; 24 capsule, Zofran 4 mg Oral Tablet - take 1 tablet by ORAL route every 12 hours As needed; 14 tablet. and Forms are Work release form, Medication Reconciliation Form, Thank You Letter, Antibiotic Education, Prescription Opioid Use. Follow up: Private Physician; When: 1 - 2 days; Reason: Recheck today's complaints, Re-evaluation by your physician. Follow up: Armani Pacheco; When: 2 - 3 days; Reason: Recheck today's complaints, Re-evaluation by your physician. Problem is new. Symptoms have improved. kelsea
[2020-01-15 17:07] VITALS: TEMP 98.9
[2020-01-15 17:11] VITALS: BP 110/79; O2SAT 98
== END 2020-01-14 18:12 | disposition home or self-care (01) ==
LOC: ER 14:32
DX: G44.009 Cluster headache syndrome, unspecified, not intractable (principal); E11.9 Type 2 diabetes mellitus without complications; F17.210 Nicotine dependence, cigarettes, uncomplicated
CPT/HCPCS: 96361; 85025; 36415; 82947; 80053; 70450; 96375; 96374; 99284; J2765; J1200; J7030 ×2

== ENCOUNTER 2020-04-15 10:39 | Emergency (ER) | payer OTHER, SELFPAY ==
[2020-04-15] MEDS ORDERED: MORPHINE 4 MG/ML SYR ONE (11:17)
[2020-04-15] MEDS ORDERED: ONDANSETRON 4 MG/2 ML VIAL ONE (11:18)
[2020-04-15] MEDS ORDERED: dexAMETHasone 10 MG/ML VIAL ONE (11:18)
[2020-04-15 11:38] LABS: Absolute Lymphocytes (CBC) 1.5 K/uL (0.7-4.9); Hematocrit 46.4 % (39.6-49.0); MPV 9.2 fL (7.6-11.3); RBC Red Blood Cell Count 5.42 M/uL (4.33-5.43)
[2020-04-15 11:53] LABS: BUN Blood Urea Nitrogen 14 mg/dL (7-18); Bicarbonate 29 mmol/L (21-32); Glucose Level 315 mg/dL (74-106); Potassium 4.8 mmol/L (3.5-5.1); Sodium Level 138 mmol/L (136-145)
--- NOTE | 2020-04-15 13:15 | RAD REPORT ---
EXAM DESCRIPTION: CT - Neck Angio - 04/15/2020 12:50 pm CLINICAL HISTORY: Neck pain Right-sided neck pain COMPARISON: No comparisons TECHNIQUE: CT angiography of the neck vessels was performed with MIPs. All CT scans are performed using dose optimization technique as appropriate and may include automated exposure control or mA/KV adjustment according to patient size. FINDINGS: A left aortic arch is identified with normal three vessel configuration of the great vesse ls. No significant flow abnormality is seen of the common carotid bilaterally. No significant stenosis is identified involving the cervical segments of both internal carotid arteri es. Normal flow is seen within both vertebral arteries. IMPRESSION: No significant flow abnormality of the neck vessels is identified.
--- NOTE | 2020-04-15 13:31 | EDPHYS ---
Physician Documentation [facility] Name: Danyel Guy Age: 34 yrs Sex: Male : 1985 Arrival Date: 04/15/2020 Time: 10:41 Bed 3 Private MD: ED Physician Kevan Espinosa HPI: 04/15 10:52 This 34 yrs old Male presents to ER via Wheelchair with complaints of Neck pm1 Pain, <24hrs Old. 10:52 The patient or guardian complains of pain, that is acute. The symptoms are located pm1 Right posterior neck. Onset: The symptoms/episode began/occurred just prior to arrival. Context: The problem was sustained at home, The neck injury/problem resulted from unknown but occurred when he was getting out of bed. Associated signs and symptoms: Pertinent negatives: fever, headache, numbness, tingling. The pain radiates to the right arm. Modifying factors: The symptoms are alleviated by nothing. the symptoms are aggravated by movement. Severity of symptoms: in the emergency department the symptoms are unchanged. The patient has not experienced similar symptoms in the past. Historical: - Allergies: 10:51 No Known Allergies; ss - Home Meds: 10:51 None [Active]; ss - PMHx: 10:51 Diabetes - NIDDM; cluster headaches; "mental illness"; ss - PSHx: 10:51 correction of testicular torsion; ss - Immunization history:: Adult Immunizations up to date. - Social history:: Smoking status: Patient denies any tobacco usage or history of. Patient uses street drugs, marijuana. ROS: 10:52 Constitutional: Negative for fever, chills, and weight loss. pm1 10:52 Cardiovascular: Negative for chest pain, palpitations, and edema, Respiratory: Negative pm1 for shortness of breath, cough, wheezing, and pleuritic chest pain, Abdomen/GI: Negative for abdominal pain, nausea, vomiting, diarrhea, and constipation, Back: Negative for injury and pain, MS/Extremity: Negative for injury and deformity, Skin: Negative for injury, rash, and discoloration. 10:52 Neck: Positive for pain with movement, tenderness, of the right trapezius, Negative for bony tenderness. 10:52 Neuro: Negative for numbness, tingling, to right arm. Exam: 10:52 Constitutional: This is a well developed, well nourished patient who is awake, alert, pm1 and in no acute distress. Head/Face: Normocephalic, atraumatic. 10:52 Back: No spinal tenderness. No costovertebral tenderness. Full range of motion. Skin: Warm, dry with normal turgor. Normal color with no rashes, no lesions, and no evidence of cellulitis. MS/ Extremity: Pulses equal, no cyanosis. Neurovascular intact. Full, normal range of motion. Neck pain reproduced with moving right arm full range of motion 10:52 Neck: External neck: tenderness, that is moderate, of the right trapezius, muscle spasm, C-spine: vertebral tenderness, is not appreciated. 10:52 Cardiovascular: Exam negative for acute changes, Rate: normal, Rhythm: regular, Pulses: no pulse deficits are appreciated, Edema: is not appreciated. 10:52 Respiratory: Exam negative for acute changes, respiratory distress, shortness of breath. 10:52 Abdomen/GI: Exam negative for acute changes, Inspection: abdomen appears normal, Palpation: abdomen is soft and non-tender, in all quadrants. 10:52 Neuro: Exam negative for acute changes, Orientation: is normal, Mentation: is normal, Motor: is normal, moves all fours, Sensation: is normal, no obvious gross deficits. Vital Signs: 10:46 BP 154 / 110; Pulse 86; Resp 24; Temp 97.9(TE); Pulse Ox 99% on R/A; Weight 90.72 kg; ss Height 5 ft. 5 in. (165.10 cm); Pain 8/10; 12:00 BP 138 / 91; Pulse 81; Resp 18; Pulse Ox 99% on R/A; ph 13:00 BP 142 / 101; Pulse 78; Resp 18; Pulse Ox 99% on R/A; ph 14:00 BP 138 / 84; Pulse 76; Resp 18; Temp 98.0; Pulse Ox 100% on R/A; ph 10:46 Body Mass Index 33.28 (90.72 kg, 165.10 cm) ss MDM: 10:44 Patient medically screened. pm1 10:52 ED course: Patient arrived to the ER room in -[facility]. pm1 10:59 Data reviewed: vital signs. Data interpreted: Pulse oximetry: on room air is 99 %. pm1 Interpretation: normal. 13:29 Counseling: I had a detailed discussion with the patient and/or guardian regarding: the pm1 historical points, exam findings, and any diagnostic results supporting the discharge/admit diagnosis, radiology results, the need for outpatient follow up, to return to the emergency department if symptoms worsen or persist or if there are any questions or concerns that arise at home. 04/15 10:55 Order name: BMP; Complete Time: 11:54 pm1 12 10:55 Order name: CBC with Diff; Complete Time: 11:54 pm1 12 10:55 Order name: CT Neck Angio; Complete Time: 13:29 pm1 04/15 10:52 Order name: IV Saline Lock; Complete Time: 11:28 pm1 Administered Medications: 11:45 Drug: Zofran (Ondansetron) 4 mg Route: IVP; Site: left antecubital; ph 15:40 Follow up: Response: No adverse reaction ph 11:47 Drug: morphine 4 mg Route: IVP; Site: left antecubital; ph 12:00 Follow up: Response: No adverse reaction; RASS: Alert and Calm (0) ph 11:48 Drug: Decadron - Dexamethasone 10 mg Route: IVP; Site: left antecubital; ph 14:00 Follow up: Response: No adverse reaction ph 13:59 Drug: Valium 5 mg Route: IVP; Site: left antecubital; ph 14:20 Follow up: Response: No adverse reaction; Pain is decreased ph Disposition: 14:35 Co-signature as Attending Physician, Kevan Espinosa MD. rn Disposition: 04/15/20 13:30 Discharged to Home. Impression: Strain of muscle, fascia and tendon at neck level. - Condition is Stable. - Discharge Instructions: Muscle Strain. - Prescriptions for Naprosyn 500 mg Oral Tablet - take 1 tablet by ORAL route 2 times per day take with food; 30 tablet. Valium 5 mg Oral Tablet - take 1 tablet by ORAL route every 8 hours As needed; 12 tablet. - Work release form, Family Work Release, Medication Reconciliation Form, Thank You Letter, Antibiotic Education, Prescription Opioid Use form. - Follow up: Emergency Department; When: As needed; Reason: Worsening of condition. Follow up: Private Physician; When: 2 - 3 days; Reason: Recheck today's complaints, Continuance of care, Re-evaluation by your physician. - Problem is new. - Symptoms have improved. Signatures: Dispatcher [employer] EDMS Kevan Espinosa MD MD rn Smirch, Shelby, RN RN ss Lorraine Rascon RN RN Barrie Mendoza, ZAIN MACHINE RECORDS UNITS SUPERVISOR pm1 Corrections: (The following items were deleted from the chart) 14:29 13:30 04/15/2020 13:30 Discharged to Home. Impression: Strain of muscle, fascia and ss tendon at neck level. Condition is Stable. Forms are Medication Reconciliation Form, Thank You Letter, Antibiotic Education, Prescription Opioid Use. Follow up: Emergency Department; When: As needed; Reason: Worsening of condition. Follow up: Private Physician; When: 2 - 3 days; Reason: Recheck today's complaints, Continuance of care, Re-evaluation by your physician. Problem is new. Symptoms have improved. pm1
--- NOTE | 2020-04-15 13:31 | ER ---
Nurse's Notes [facility] Name: Danyel Guy Age: 34 yrs Sex: Male : 1985 Arrival Date: 04/15/2020 Time: 10:41 Bed 3 Private MD: Diagnosis: Strain of muscle, fascia and tendon at neck level Presentation: 04/15 10:46 Chief complaint: Patient states: Sudden onset of neck pain that began just prior to ss arrival. Pt reports that when he was getting out of bed, he heard a pop then the pain began. Pain is reportedly on R side of neck and radiates down R arm and sternum area. No known injury. Coronavirus screen: Client denies travel out of the [place] in the last 14 days. Ebola Screen: Patient denies exposure to infectious person. Patient denies travel to an Ebola-affected area in the 21 days before illness onset. Initial Sepsis Screen: Does the patient meet any 2 criteria? No. Patient's initial sepsis screen is negative. Does the patient have a suspected source of infection? No. Patient's initial sepsis screen is negative. Risk Assessment: Do you want to hurt yourself or someone else? Patient reports no desire to harm self or others. Note C COLLAR PLACED UPON ARRIVAL TO ED. Onset of symptoms was April 15, 2020. 10:46 Method Of Arrival: Wheelchair ss 10:46 Acuity: WILLIAM 3 ss Triage Assessment: 10:38 General: Appears distressed, uncomfortable, Behavior is calm, cooperative. Pain: ss Complains of pain in R side of neck. Radiates down arm and chest. Neuro: Level of Consciousness is awake, alert, obeys commands, Oriented to person, place, time, situation. Respiratory: Airway is patent Respiratory effort is even, unlabored. Derm: Skin is intact, is healthy with good turgor, Skin is pink, warm \\T\\ dry. normal. Historical: - Allergies: 10:51 No Known Allergies; ss - Home Meds: 10:51 None [Active]; ss - PMHx: 10:51 Diabetes - NIDDM; cluster headaches; "mental illness"; ss - PSHx: 10:51 correction of testicular torsion; ss - Immunization history:: Adult Immunizations up to date. - Social history:: Smoking status: Patient denies any tobacco usage or history of. Patient uses street drugs, marijuana. Screenin:55 Abuse screen: Denies threats or abuse. Denies injuries from another. Nutritional ph screening: No deficits noted. Tuberculosis screening: No symptoms or risk factors identified. Fall Risk None identified. Assessment: 11:15 General: Appears in no apparent distress. uncomfortable, Behavior is calm, cooperative, ph appropriate for age. Pain: Complains of pain in right posterior aspect of neck and right lateral aspect of neck. Neuro: Level of Consciousness is awake, alert, obeys commands, Oriented to person, place, time, situation, Denies weakness dizziness, paresthesias numbness. Cardiovascular: Capillary refill < 3 seconds in bilateral fingers Patient's skin is warm and dry. Respiratory: Airway is patent Respiratory effort is even, unlabored, Respiratory pattern is regular, symmetrical. Derm: Skin is intact, is healthy with good turgor, Skin is pink, warm \\T\\ dry. Musculoskeletal: Circulation, motion, and sensation intact. Range of motion: intact in all extremities. 12:30 Reassessment: Patient appears in no apparent distress at this time. Patient and/or ph family updated on plan of care and expected duration. Pain level reassessed. Patient is alert, oriented x 3, equal unlabored respirations, skin warm/dry/pink. 13:30 Reassessment: Patient appears in no apparent distress at this time. Patient and/or ph family updated on plan of care and expected duration. Pain level reassessed. Patient is alert, oriented x 3, equal unlabored respirations, skin warm/dry/pink. Awaiting CT results, c-collar remains in place. 14:20 Reassessment: Patient appears in no apparent distress at this time. Patient and/or ph family updated on plan of care and expected duration. Pain level reassessed. Patient is alert, oriented x 3, equal unlabored respirations, skin warm/dry/pink. D/C home w/ SO Patient states feeling better. Vital Signs: 10:46 BP 154 / 110; Pulse 86; Resp 24; Temp 97.9(TE); Pulse Ox 99% on R/A; Weight 90.72 kg; ss Height 5 ft. 5 in. (165.10 cm); Pain 8/10; 12:00 BP 138 / 91; Pulse 81; Resp 18; Pulse Ox 99% on R/A; ph 13:00 BP 142 / 101; Pulse 78; Resp 18; Pulse Ox 99% on R/A; ph 14:00 BP 138 / 84; Pulse 76; Resp 18; Temp 98.0; Pulse Ox 100% on R/A; ph 10:46 Body Mass Index 33.28 (90.72 kg, 165.10 cm) ED Course: 10:41 Patient arrived in ED. ph 10:43 Barrie Pleitez NP is PHCP. pm1 10:43 Kevan Espinosa MD is Attending Physician. pm1 10:50 Triage completed. ss 10:51 Arm band placed on right wrist. ss 10:55 Lorraine Rascon, EWELINA is Primary Nurse. ph 11:24 Initial lab(s) drawn, by me, sent to lab. Inserted saline lock: 20 gauge in left dh3 antecubital area, using aseptic technique. Blood collected. 11:55 Patient has correct armband on for positive identification. Bed in low position. Call ph light in reach. Side rails up X 1. Pulse ox on. NIBP on. Door closed. Noise minimized. 12:50 CT Neck Angio In Process Unspecified. EDMS 14:25 No provider procedures requiring assistance completed. IV discontinued, intact, ph bleeding controlled, No redness/swelling at site. Pressure dressing applied. Administered Medications: 11:45 Drug: Zofran (Ondansetron) 4 mg Route: IVP; Site: left antecubital; ph 15:40 Follow up: Response: No adverse reaction ph 11:47 Drug: morphine 4 mg Route: IVP; Site: left antecubital; ph 12:00 Follow up: Response: No adverse reaction; RASS: Alert and Calm (0) ph 11:48 Drug: Decadron - Dexamethasone 10 mg Route: IVP; Site: left antecubital; ph 14:00 Follow up: Response: No adverse reaction ph 13:59 Drug: Valium 5 mg Route: IVP; Site: left antecubital; ph 14:20 Follow up: Response: No adverse reaction; Pain is decreased ph Outcome: 13:30 Discharge ordered by . pm1 14:29 Patient left the ED. ss 14:29 Discharged to home ambulatory, with significant other. ph 14:29 Condition: good 14:29 Discharge instructions given to patient, Instructed on discharge instructions, follow up and referral plans. medication usage, Demonstrated understanding of instructions, follow-up care, medications, Prescriptions given X 2. Signatures: Dispatcher [employer] Linda Mendoza RN RN ss Hall, Patricia, RN RN ph Marinas, Patrick, ZAIN REALTIME REPORTER pm1 [place]a Feliciano on license of [facility]
[2020-04-15] MEDS ORDERED: DIAZEPAM 10 MG/2 ML INJ SYRINGE ONE (14:04)
[2020-04-19 10:10] VITALS: BP 154/110; TEMP 97.9; O2SAT 99
== END 2020-04-15 14:29 | disposition home or self-care (01) ==
LOC: ER 10:39
DX: S16.1XXA Strain of muscle, fascia and tendon at neck level, initial encounter (principal); E11.9 Type 2 diabetes mellitus without complications
CPT/HCPCS: 85025; 80048; 36415; 70498; 96375; 96374; 99284; Q9967; J3360; J1100; J2405

== ENCOUNTER 2020-06-28 21:52 | Emergency (ER) | payer OTHER, SELFPAY ==
[2020-06-29 01:55] LABS: Absolute Lymphocytes (CBC) 2.3 K/uL (0.7-4.9); Basophils % 0.7 % (0-1.3); Hematocrit 43.8 % (39.6-49.0); Lymphocytes % 43.7 % (15.3-44.8); RBC Red Blood Cell Count 5.15 M/uL (4.33-5.43)
[2020-06-29 02:00] LABS: Protime INR 0.84
[2020-06-29 02:18] LABS: ALT/SGPT 38 U/L (12-78); AST/SGOT 13 U/L (15-37); Albumin 3.5 g/dL (3.4-5.0); Alkaline Phosphatase 59 U/L (45-117); BUN Blood Urea Nitrogen 14 mg/dL (7-18); Bicarbonate 27 mmol/L (21-32); Bilirubin Direct < 0.1 mg/dL (0-0.2); Bilirubin Total 0.4 mg/dL (0.2-1.0); Glucose Level 300 mg/dL (74-106); Protein, Total 7.3 g/dL (6.4-8.2); Sodium Level 139 mmol/L (136-145)
[2020-06-29 03:39] LABS: Barbiturates NEGATIVE (NEGATIVE); Benzodiazepines NEGATIVE (NEGATIVE); Cocaine NEGATIVE (NEGATIVE); METHAMPHETAM NEGATIVE (NEGATIVE); Methadone NEGATIVE (NEGATIVE); Opiates NEGATIVE (NEGATIVE); Phencyclidine NEGATIVE (NEGATIVE); THC Cannibis POSITIVE (NEGATIVE)
[2020-06-29 03:40] LABS: Urine Blood 1+ (NEG); Urine Glucose 2+ (NEG); Urine Protein 2+ (NEG); Urine Specific Gravity 1.025 (1.005-1.030)
--- NOTE | 2020-06-29 04:11 | EDPHYS ---
Physician Documentation [facility] Name: Danyel Guy Age: 34 yrs Sex: Male : 1985 Arrival Date: 06/28/2020 Time: 21:52 Bed 16 Private MD: ED Physician Kyle Vee HPI: 06/29 06:59 This 34 yrs old Male presents to ER via Ambulatory with complaints of Psych tw4 Problem. 06:59 The patient presents to the emergency department with anxiety, depression. The patient tw4 presents to the emergency department with anxiety, over unknown circumstances, depression, over unknown circumstances. Onset: The symptoms/episode began/occurred yesterday. Past psychiatric history: Prior diagnosis: no previous psychiatric diagnosis known. Associated signs and symptoms: Pertinent positives; anxiety, depression, paranoia. The patient has not experienced similar symptoms in the past. Historical: - Allergies: 06/28 22:15 No Known Drug Allergies; ll1 - PMHx: 22:15 "mental illness"; cluster headaches; Diabetes - NIDDM; ll1 - PSHx: 22:15 correction of testicular torsion; Tonsillectomy; ll1 - Immunization history:: Flu vaccine is not up to date. - Social history:: Smoking status: Patient denies any tobacco usage or history of. ROS: 06/29 06:59 Constitutional: Negative for fever, chills, and weight loss, Eyes: Negative for injury, tw4 pain, redness, and discharge, Cardiovascular: Negative for chest pain, palpitations, and edema, Respiratory: Negative for shortness of breath, cough, wheezing, and pleuritic chest pain, Abdomen/GI: Negative for abdominal pain, nausea, vomiting, diarrhea, and constipation, MS/Extremity: Negative for injury and deformity, Skin: Negative for injury, rash, and discoloration, Neuro: Negative for headache, weakness, numbness, tingling, and seizure. Psych: Positive for anxiety, depression. 06:59 Psych: Positive for insomnia, Negative for alcohol dependence, auditory hallucinations, tw4 visual hallucinations, homicidal ideation, suicide gesture, suicidal ideation. Exam: 06:59 Constitutional: This is a well developed, well nourished patient who is awake, alert, tw4 and in no acute distress. Head/Face: Normocephalic, atraumatic. 06:59 Chest/axilla: Normal chest wall appearance and motion. Nontender with no deformity. tw4 No lesions are appreciated. Cardiovascular: Regular rate and rhythm with a normal S1 and S2. No gallops, murmurs, or rubs. Normal PMI, no JVD. No pulse deficits. Respiratory: Lungs have equal breath sounds bilaterally, clear to auscultation and percussion. No rales, rhonchi or wheezes noted. No increased work of breathing, no retractions or nasal flaring. Abdomen/GI: Soft, non-tender, with normal bowel sounds. No distension or tympany. No guarding or rebound. No evidence of tenderness throughout. Back: No spinal tenderness. No costovertebral tenderness. Full range of motion. MS/ Extremity: Pulses equal, no cyanosis. Neurovascular intact. Full, normal range of motion. Neuro: Awake and alert, GCS 15, oriented to person, place, time, and situation. Cranial nerves II-XII grossly intact. Motor strength 5/5 in all extremities. Sensory grossly intact. Cerebellar exam normal. Normal gait. 06:59 Psych: Behavior/mood is pleasant, cooperative, Affect is flat, Oriented to person, place, time, Patient has no thoughts/intents to harm self or others. Judgement / Insight is normal. Vital Signs: 06/28 22:11 BP 155 / 100; Pulse 85; Resp 17; Temp 97.4; Pulse Ox 97% on R/A; Weight 90.72 kg; ll1 Height 5 ft. 5 in. (165.10 cm); Pain 3/10; 06/29 02:15 BP 145 / 98; Pulse 71; Resp 18; Pulse Ox 100% on R/A; jb4 03:15 BP 126 / 89; Pulse 67; Resp 16; Pulse Ox 99% on R/A; jb4 03:30 BP 121 / 88; Pulse 70; Resp 16; Pulse Ox 98% ; sf 04:30 BP 131 / 107; Pulse 66; Resp 16; Pulse Ox 98% ; sf 06/28 22:11 Body Mass Index 33.28 (90.72 kg, 165.10 cm) ll1 MDM: 01:05 Patient medically screened. tw4 07:01 Differential diagnosis: drug withdrawal. acute psychotic break. Data reviewed: vital tw4 signs, nurses notes. Data interpreted: Pulse oximetry: Interpretation: normal. Test interpretation: by ED physician or midlevel provider: plain radiologic studies. Counseling: I had a detailed discussion with the patient and/or guardian regarding: the historical points, exam findings, and any diagnostic results supporting the discharge/admit diagnosis. Special discussion: I discussed with the patient/guardian in detail that at this point there is no indication for admission to the hospital. It is understood, however, that if the symptoms persist or worsen the patient needs to return immediately for re-evaluation. 06/29 01:05 Order name: Acetaminophen 06/29 01:05 Order name: Basic Metabolic Panel 06/29 01:05 Order name: CBC with Diff 06/29 01:05 Order name: ETOH Level 06/29 01:05 Order name: Hepatic Function 06/29 01:05 Order name: PT-INR 06/29 01:05 Order name: Ptt, Activated; Complete Time: 03:43 06/29 03:44 Interpretation: Within normal limits: PTT 31.3. 06/29 01:05 Order name: Salicylate; Complete Time: 03:43 06/29 03:43 Interpretation: Within normal limits: CELIA < 1.7. 06/29 01:05 Order name: Urine Drug Screen; Complete Time: 03:43 06/29 03:43 Interpretation: Normal except: THC POSITIVE. 06/29 01:06 Order name: Acetaminophen Level; Complete Time: 03:43 EDMS 06/29 03:43 Interpretation: Within normal limits: ACETA < 2.0. 06/29 01:06 Order name: Basic Metabolic Panel; Complete Time: 03:43 EDMS 06/29 03:43 Interpretation: Normal except: GLUC 300. 06/29 01:06 Order name: CBC with Automated Diff; Complete Time: 03:43 EDMS 06/29 03:44 Interpretation: Within normal limits. 06/29 01:06 Order name: Alcohol Serum/Plasma; Complete Time: 03:43 EDMS 06/29 03:44 Interpretation: Within normal limits: ETOH < 10. 06/29 01:06 Order name: Liver (Hepatic) Function; Complete Time: 03:43 EDMS 06/29 03:43 Interpretation: Normal except: AST 13; GLOB 3.8; A/G 0.9. 06/29 01:05 Order name: EKG; Complete Time: 01:06 4 06/29 01:05 Order name: EKG - Nurse/Tech; Complete Time: 03:07 tw4 06/29 01:05 Order name: IV Saline Lock; Complete Time: 02:10 4 06/29 01:05 Order name: Labs collected and sent; Complete Time: 02:10 4 06/29 01:05 Order name: Urine Dipstick-Ancillary (obtain specimen); Complete Time: 03:07 tw4 06/29 01:06 Order name: Protime (+INR); Complete Time: 03:43 EDMS 06/29 03:44 Interpretation: Within normal limits: PT 9.7. 06/29 03:13 Order name: Urine Dipstick--Ancillary (enter results); Complete Time: 03:43 mw2 06/29 03:44 Interpretation: Normal except: UBLD 1+; UPROT 2+. tw4 EC:59 Rate is 69 beats/min. Rhythm is regular. QRS [place] is Normal. CT interval is normal. QRS tw4 interval is normal. QT interval is normal. No Q waves. T waves are Normal. No ST changes noted. Clinical impression: Normal ECG. Interpreted by me. Reviewed by me. Administered Medications: No medications were administered Disposition: 06/29/20 04:10 Discharged to Home. Impression: Anxiety disorder, unspecified, Adjustment disorder with depressed mood. - Condition is Stable. - Discharge Instructions: Adjustment Disorder, Adult, Panic Attacks, Social Anxiety Disorder, Generalized Anxiety Disorder, Persistent Depressive Disorder, Major Depressive Disorder. - Prescriptions for Lunesta 1 mg Oral tablet - take 1 tablet by ORAL route once daily; 5 tablet. Ativan 0.5 mg Oral Tablet - take 1 tablet by ORAL route every 8 hours As needed; 5 tablet. - Medication Reconciliation Form, Thank You Letter, Antibiotic Education, Prescription Opioid Use, Family Work Release form. - Follow up: Private Physician; When: Upon discharge from the Emergency Department; Reason: Recheck today's complaints, Continuance of care, Re-evaluation by your physician. - Problem is new. - Symptoms have improved. Signatures: Dispatcher [employer] Kyle Ferrer MD MD tw4 Vilma Craig RN RN ll1 Josue Atkinson RN RN sf Corrections: (The following items were deleted from the chart) 04:49 04:10 06/29/2020 04:10 Discharged to Home. Impression: Anxiety disorder, unspecified; sf Adjustment disorder with depressed mood. Condition is Stable. Forms are Medication Reconciliation Form, Thank You Letter, Antibiotic Education, Prescription Opioid Use. Follow up: Private Physician; When: Upon discharge from the Emergency Department; Reason: Recheck today's complaints, Continuance of care, Re-evaluation by your physician. Problem is new. Symptoms have improved. tw4
--- NOTE | 2020-06-29 04:11 | ER ---
Nurse's Notes [facility] Name: Danyel Guy Age: 34 yrs Sex: Male : 1985 Arrival Date: 06/28/2020 Time: 21:52 Bed 16 Private MD: Diagnosis: Anxiety disorder, unspecified;Adjustment disorder with depressed mood Presentation: 06/28 22:11 Chief complaint: Patient states: Anxiety, slight depression worse than usual for 3 ll1 weeks. Used to take prozac, gabapentin, but stopped them years ago. No SI or LITTLEJOHN. Coronavirus screen: Client denies travel out of the [place] in the last 14 days. At this time, the client does not indicate any symptoms associated with coronavirus-19. Ebola Screen: Patient denies travel to an Ebola-affected area in the 21 days before illness onset. Initial Sepsis Screen: Does the patient meet any 2 criteria? No. Patient's initial sepsis screen is negative. Does the patient have a suspected source of infection? No. Patient's initial sepsis screen is negative. Risk Assessment: Do you want to hurt yourself or someone else? Patient reports no desire to harm self or others. Onset of symptoms was June 07, 2020. 22:11 Method Of Arrival: Ambulatory ll1 22:11 Acuity: WILLIAM 3 ll1 Historical: - Allergies: 22:15 No Known Drug Allergies; ll1 - PMHx: 22:15 "mental illness"; cluster headaches; Diabetes - NIDDM; ll1 - PSHx: 22:15 correction of testicular torsion; Tonsillectomy; ll1 - Immunization history:: Flu vaccine is not up to date. - Social history:: Smoking status: Patient denies any tobacco usage or history of. Screenin/19 01:05 Abuse screen: Denies threats or abuse. Nutritional screening: No deficits noted. jb4 Tuberculosis screening: No symptoms or risk factors identified. Fall Risk None identified. Assessment: 01:05 General: Appears in no apparent distress. comfortable, Behavior is calm, cooperative, jb4 appropriate for age, PT states " I have been having intrusive thoughts lately about coming to terms with my mortality. It has gotten to the point where it is affecting my day to day life and activities. I am having a harder time eating and sleeping. It has started getting to the point where I wish I did not exist. I don't want to hurt myself, I just wish I didn't exist in the first place. Its a fear of and dying.". Pain: Denies pain. Neuro: Level of Consciousness is awake, alert, obeys commands, Oriented to person, place, time, situation. Cardiovascular: Patient's skin is warm and dry. Respiratory: Airway is patent Respiratory effort is even, unlabored, Respiratory pattern is regular, symmetrical. GI: No signs and/or symptoms were reported involving the gastrointestinal system. : No signs and/or symptoms were reported regarding the genitourinary system. EENT: No signs and/or symptoms were reported regarding the EENT system. Derm: Skin is intact, Skin is pink, warm \\T\\ dry. Musculoskeletal: Circulation, motion, and sensation intact. Range of motion: intact in all extremities. 02:00 Reassessment: Patient appears in no apparent distress at this time. Patient and/or jb4 family updated on plan of care and expected duration. Pain level reassessed. Patient is alert, oriented x 3, equal unlabored respirations, skin warm/dry/pink. Vital Signs: 06/28 22:11 BP 155 / 100; Pulse 85; Resp 17; Temp 97.4; Pulse Ox 97% on R/A; Weight 90.72 kg; ll1 Height 5 ft. 5 in. (165.10 cm); Pain 3/10; 06/29 02:15 BP 145 / 98; Pulse 71; Resp 18; Pulse Ox 100% on R/A; jb4 03:15 BP 126 / 89; Pulse 67; Resp 16; Pulse Ox 99% on R/A; jb4 03:30 BP 121 / 88; Pulse 70; Resp 16; Pulse Ox 98% ; sf 04:30 BP 131 / 107; Pulse 66; Resp 16; Pulse Ox 98% ; sf 06/28 22:11 Body Mass Index 33.28 (90.72 kg, 165.10 cm) ll1 ED Course: 06/28 21:52 Patient arrived in ED. cl3 22:14 Triage completed. ll1 22:15 Arm band placed on. ll1 06/29 01:05 Kyle Vee MD is Attending Physician. tw4 01:05 Patient has correct armband on for positive identification. Bed in low position. Call jb4 light in reach. Side rails up X 1. Pulse ox on. NIBP on. 01:40 Initial lab(s) drawn, by ne, sent to lab. Inserted saline lock: 20 gauge in left sf antecubital area, using aseptic technique. Blood collected. 02:10 Ishan Rosario, RN is Primary Nurse. jb4 03:50 Acetaminophen Sent. sf 03:50 Basic Metabolic Panel Sent. sf 03:50 CBC with Diff Sent. sf 03:50 ETOH Level Sent. sf 03:50 Hepatic Function Sent. sf 03:50 PT-INR Sent. sf 04:46 No provider procedures requiring assistance completed. IV discontinued, intact, sf bleeding controlled, No redness/swelling at site. Pressure dressing applied. Administered Medications: No medications were administered Outcome: 04:10 Discharge ordered by . tw4 04:46 Discharged to home ambulatory. sf 04:46 Condition: stable 04:46 Discharge instructions given to patient, Instructed on discharge instructions, follow up and referral plans. medication usage, Demonstrated understanding of instructions, follow-up care, medications, Prescriptions given X 2. 04:49 Patient left the ED. sf Signatures: Ishan Rosario, RN RN jb4 Kyle Vee MD MD tw4 Josué Craig cl3 Vilma Craig RN RN ll1 Josue Atkinson RN RN sf
[2020-06-29 04:54] VITALS: TEMP 97.4
[2020-06-29 04:56] VITALS: BP 126/89; O2SAT 99
== END 2020-06-29 04:49 | disposition home or self-care (01) ==
LOC: ER 21:52
DX: F43.23 Adjustment disorder with mixed anxiety and depressed mood (principal)
CPT/HCPCS: 36415; 80048; 80076; 80307; 80320; 80329; 81003; 85025; 85610; 85730; 99284

== ENCOUNTER 2021-05-13 10:14 | Emergency (ER) | payer SELFPAY ==
[2021-05-13 11:35] LABS: Absolute Lymphocytes (CBC) 1.8 K/uL (0.7-4.9); Hematocrit 44.9 % (39.6-49.0); Lymphocytes % 30.3 % (15.3-44.8); MPV 8.4 fL (7.6-11.3); RBC Red Blood Cell Count 5.25 M/uL (4.33-5.43)
[2021-05-13 11:51] LABS: ALT/SGPT 37 U/L (12-78); AST/SGOT 13 U/L (15-37); Albumin 3.6 g/dL (3.4-5.0); Alkaline Phosphatase 48 U/L (45-117); BUN Blood Urea Nitrogen 12 mg/dL (7-18); Bicarbonate 28 mmol/L (21-32); Bilirubin Direct 0.1 mg/dL (0-0.2); Bilirubin Total 0.5 mg/dL (0.2-1.0); Glucose Level 244 mg/dL (74-106); Lipase 107 U/L (73-393); Potassium 4.3 mmol/L (3.5-5.1); Protein, Total 7.5 g/dL (6.4-8.2); Sodium Level 138 mmol/L (136-145)
[2021-05-13 12:39] LABS: SARS-COV-2 RT PCR NEGATIVE (NEGATIVE)
[2021-05-13] MEDS ORDERED: NA CHLORIDE 0.9% 1,000 ML ONE (14:20)
[2021-05-13] MEDS ORDERED: ONDANSETRON 4 MG/2 ML VIAL ONE (14:20)
[2021-05-13] MEDS ORDERED: MECLIZINE HCL 12.5 MG TAB ONE (14:22)
--- NOTE | 2021-05-13 14:47 | RAD REPORT ---
EXAM DESCRIPTION: CT - Head Brain Wo Cont - 05/13/2021 2:28 pm CLINICAL HISTORY: HEADACHE Headache, drowsiness COMPARISON: Head Brain Wo Cont dated 01/14/2020 TECHNIQUE: All CT scans are performed using dose optimization technique as appropriate and may inclu de automated exposure control or mA/KV adjustment according to patient size. FINDINGS: No intracranial hemorrhage, hydrocephalus or extra-axial fluid collection.No areas of brai n edema or evidence of midline shift. The paranasal sinuses and mastoids are clear. The calvarium is intact. IMPRESSION: No acute intracranial abnormality.
--- NOTE | 2021-05-13 15:05 | ER ---
Nurse's Notes [facility] Name: Danyel Guy Age: 35 yrs Sex: Male : 1985 Arrival Date: 05/13/2021 Time: 10:21 Bed Waiting Private MD: Diagnosis: Vomiting;Headache;Benign paroxysmal vertigo Presentation: 05/13 11:15 Chief complaint: Patient states: PT COMPLAIN OF HEADACHE AND NAUSEA AND BODYACHES. iw Coronavirus screen: Client denies travel out of the [place] in the last 14 days. 11:15 Method Of Arrival: Ambulatory iw 11:15 Acuity: WILLIAM 3 iw Historical: - Home Meds: 11:17 Imitrex 50 mg Oral tab 1 tab [Active]; iw - PMHx: 11:17 cluster headaches; Diabetes - NIDDM; iw - Immunization history:: Client reports receiving the 2nd dose of the Covid vaccine. Vital Signs: 11:15 BP 144 / 84; Pulse 79; Resp 16; Temp 97.2; Pulse Ox 100% on R/A; Weight 90.72 kg; iw Height 5 ft. 5 in. (165.10 cm); 11:18 BP 144 / 84; Pulse 79; Resp 16; Temp 97.2; Pulse Ox 100% on R/A; iw 11:15 Body Mass Index 33.28 (90.72 kg, 165.10 cm) iw ED Course: 10:21 Patient arrived in ED. am2 11:17 Triage completed. iw 11:18 Barrie Pleitez NP is PHCP. pm1 11:18 Yossi Wiggins MD is Attending Physician. pm1 14:18 COVID-19/FLU A+B (Document "Date of Onset" if Symptomatic) Sent. kj1 14:28 CT Head Brain wo Cont In Process Unspecified. EDMS 15:37 Lilly Ang, EWELINA is Primary Nurse. iw Administered Medications: 14:25 Drug: NS 0.9% 1000 ml Route: IV; Rate: 1000 ml; Site: right antecubital; iw 14:25 Drug: Meclizine 50 mg Route: PO; iw 14:26 Drug: Zofran (Ondansetron) 4 mg Route: IVP; Site: right antecubital; iw Outcome: 15:05 Discharge ordered by . pm1 15:37 Patient left the ED. iw Signatures: Dispatcher [employer] Lilly Gomez, RN RN iw Barrie Pleitez, MANAGER GROUP MANAGER GROUP pm1 Анна Lauren am2 Renuka Rose kj1
--- NOTE | 2021-05-13 15:05 | EDPHYS ---
Physician Documentation [facility] Name: Danyel Guy Age: 35 yrs Sex: Male : 1985 Arrival Date: 05/13/2021 Time: 10:21 Bed Waiting Private MD: ED Physician Yossi Wiggins HPI: 05/13 11:20 This 35 yrs old Male presents to ER via Ambulatory with complaints of Nausea, Headache. pm1 11:20 The patient presents to the emergency department with nausea, vomiting. pm1 11:20 Onset: The symptoms/episode began/occurred this morning. Possible causes: unknown. The pm1 symptoms are aggravated by Movement of head results in dizziness, room spinning. Associated signs and symptoms: Pertinent positives: nausea, vomiting, Pertinent negatives: abdominal pain, diarrhea, fever, chest pain, shortness of breath. Severity of symptoms: in the emergency department the symptoms are worse. The patient has not experienced similar symptoms in the past. The patient has not recently seen a physician, and does not have an established primary care provider, patient has not taken his medications for diabetes in over one year. Historical: - Home Meds: 11:17 Imitrex 50 mg Oral tab 1 tab [Active]; iw - PMHx: 11:17 cluster headaches; Diabetes - NIDDM; iw - Immunization history:: Client reports receiving the 2nd dose of the Covid vaccine. ROS: 11:20 Constitutional: Negative for fever, chills, and weight loss, Cardiovascular: Negative pm1 for chest pain, palpitations, and edema, Respiratory: Negative for shortness of breath, cough, wheezing, and pleuritic chest pain. 11:20 Back: Negative for injury and pain, : Negative for injury, bleeding, discharge, and swelling, MS/Extremity: Negative for injury and deformity, Skin: Negative for injury, rash, and discoloration. 11:20 Abdomen/GI: Positive for nausea and vomiting, Negative for abdominal pain, diarrhea, constipation. 11:20 Neuro: Positive for dizziness, headache, Negative for numbness, tingling, weakness. 11:20 All other systems are negative. pm1 Exam: 11:20 Constitutional: This is a well developed, well nourished patient who is awake, alert, pm1 and in no acute distress. Head/Face: Normocephalic, atraumatic. 11:20 Back: No spinal tenderness. No costovertebral tenderness. Full range of motion. Skin: Warm, dry with normal turgor. Normal color with no rashes, no lesions, and no evidence of cellulitis. MS/ Extremity: Pulses equal, no cyanosis. Neurovascular intact. Full, normal range of motion. 11:20 Eyes: Pupils: no acute changes, Extraocular movements: no acute changes, Conjunctiva: no acute changes, no injection, Sclera: no acute changes, icterus, is not appreciated, Nystagmus: horizontal nystagmus with right laughlin gaze just passing midline. 11:20 Neck: Exam negative for acute changes, External neck: is normal, ROM/movement: no acute changes. 11:20 Cardiovascular: Exam negative for acute changes, Rate: normal, Rhythm: regular, Pulses: no pulse deficits are appreciated. 11:20 Respiratory: Exam negative for acute changes, respiratory distress, shortness of breath, Breath sounds: are clear throughout. 11:20 Abdomen/GI: Exam negative for acute changes, Inspection: abdomen appears normal, Palpation: abdomen is soft and non-tender, in all quadrants. 11:20 Neuro: Exam negative for acute changes, Orientation: is normal, Mentation: is normal, Motor: moves all fours. Vital Signs: 11:15 BP 144 / 84; Pulse 79; Resp 16; Temp 97.2; Pulse Ox 100% on R/A; Weight 90.72 kg; iw Height 5 ft. 5 in. (165.10 cm); 11:18 BP 144 / 84; Pulse 79; Resp 16; Temp 97.2; Pulse Ox 100% on R/A; iw 11:15 Body Mass Index 33.28 (90.72 kg, 165.10 cm) iw MDM: 11:38 Patient medically screened. pm1 15:03 Data reviewed: vital signs. Data interpreted: Pulse oximetry: on room air is 100 %. pm1 Interpretation: normal. 05/13 11:20 Order name: COVID-19/FLU A+B (Document "Date of Onset" if Symptomatic) pm1 05/13 11:20 Order name: Basic Metabolic Panel pm1 05/13 11:20 Order name: CBC with Diff; Complete Time: 11:38 pm1 05/13 11:20 Order name: Hepatic Function pm1 05/13 11:20 Order name: Lipase; Complete Time: 13:01 pm1 05/13 11:20 Order name: COVID-19/FLU A+B; Complete Time: 13:01 EDMS 05/13 11:20 Order name: IV Saline Lock; Complete Time: 14:04 pm1 05/13 11:20 Order name: Labs collected and sent; Complete Time: 14:04 pm1 05/13 11:20 Order name: Basic Metabolic Panel; Complete Time: 13:01 EDMS 05/13 11:20 Order name: Liver (Hepatic) Function; Complete Time: 13:01 EDMS 05/13 14:18 Order name: CT Head Brain wo Cont; Complete Time: 15:03 pm1 05/13 11:20 Order name: Urine Dipstick-Ancillary (obtain specimen) pm1 Administered Medications: 14:25 Drug: NS 0.9% 1000 ml Route: IV; Rate: 1000 ml; Site: right antecubital; iw 14:25 Drug: Meclizine 50 mg Route: PO; iw 14:26 Drug: Zofran (Ondansetron) 4 mg Route: IVP; Site: right antecubital; iw Disposition: 05/14 08:53 Co-signature as Attending Physician, Yossi Wiggins MD I agree with the assessment and kelsea plan of care. Disposition Summary: 05/13/21 15:05 Discharge Ordered Location: Home pm1 Problem: new pm1 Symptoms: have improved pm1 Condition: Stable pm1 Diagnosis - Vomiting pm1 - Headache pm1 - Benign paroxysmal vertigo pm1 Followup: pm1 - With: Emergency Department - When: As needed - Reason: Worsening of condition Followup: pm1 - With: Private Physician - When: 2 - 3 days - Reason: Recheck today's complaints, Continuance of care, Re-evaluation by your physician Discharge Instructions: - Discharge Summary Sheet pm1 - Benign Positional Vertigo pm1 - General Headache Without Cause pm1 - Vomiting, Adult pm1 Forms: - Medication Reconciliation Form pm1 - Thank You Letter pm1 - Antibiotic Education pm1 - Prescription Opioid Use pm1 Prescriptions: - ondansetron 4 mg Oral tablet,disintegrating - place 1 tablet by TRANSLINGUAL route every 8 hours As needed; 15 tablet; pm1 Refills: 0, Product Selection Permitted - Meclizine 25 mg Oral Tablet - take 1 tablet by ORAL route every 8 hours As needed; 30 tablet; Refills: 0, pm1 Product Selection Permitted - Diclofenac Sodium 75 mg Oral tablet,delayed release (DR/EC) - take 1 tablet by ORAL route 2 times per day As needed; 30 tablet; Refills: 0, pm1 Product Selection Permitted Signatures: Dispatcher [employer] Yossi Regan MD MD cha Williams, Irene, RN RN iw Barrie Pleitez, [employer]AIN [employer] SERVICE OPERATOR pm1
[2021-05-13 15:42] VITALS: BP 144/84; TEMP 97.2; O2SAT 100
== END 2021-05-13 15:37 | disposition home or self-care (01) ==
LOC: ER 10:14
DX: R51.9 Headache, unspecified (principal); H81.10 Benign paroxysmal vertigo, unspecified ear; Z20.822 Contact with and (suspected) exposure to COVID-19
CPT/HCPCS: 0240U; 36415; 70450; 80048; 80076; 83690; 85025; 96374; 99283; J2405; J7030; J8597

== ENCOUNTER 2021-11-20 12:19 | Emergency (ER) | payer SELFPAY ==
[2021-11-20] MEDS ORDERED: CYCLOBENZAPRINE 10 MG TAB ONE (14:08)
[2021-11-20] MEDS ORDERED: HYDROCODONE/APAP 7.5/325 MG TAB ONE (14:09)
[2021-11-20] MEDS ORDERED: KETOROLAC 30 MG/ML INJ ONE (14:09)
--- NOTE | 2021-11-20 14:40 | RAD REPORT ---
EXAM DESCRIPTION: RAD - Femur Left - 11/20/2021 2:11 pm CLINICAL HISTORY: PAIN COMPARISON: None. FINDINGS: No fracture is identified. There is no dislocation or periosteal reaction noted. No acute or suspicious bony finding. No air or foreign body in the soft tissues. IMPRESSION: Negative left femur examination.
[2021-11-20 15:19] LABS: Urine Blood Trace-intact (Negative); Urine Glucose Negative (Negative); Urine Protein 2+ (Negative); Urine Specific Gravity 1.015 (1.005-1.030)
--- NOTE | 2021-11-20 15:20 | ER ---
Nurse's Notes [facility] Name: Danyel Guy Age: 35 yrs Sex: Male : 1985 Arrival Date: 11/20/2021 Time: 12:28 Bed 10 Private MD: Diagnosis: Pain in left leg-anterior upper leg Presentation: 11/20 13:17 Chief complaint: Patient states: has pain inleft leg up to lower abd and lower back, iw thinks he may have pulled something but does not remember injuring himself, been hurting for a week. Coronavirus screen: At this time, the client does not indicate any symptoms associated with coronavirus-19. Ebola Screen: Patient negative for fever greater than or equal to 101.5 degrees Fahrenheit, and additional compatible Ebola Virus Disease symptoms Patient denies exposure to infectious person. Patient denies travel to an Ebola-affected area in the 21 days before illness onset. No symptoms or risks identified at this time. Initial Sepsis Screen: Does the patient meet any 2 criteria? No. Patient's initial sepsis screen is negative. Does the patient have a suspected source of infection? No. Patient's initial sepsis screen is negative. Risk Assessment: Do you want to hurt yourself or someone else? Patient reports no desire to harm self or others. Onset of symptoms was November 12, 2021. 13:17 Method Of Arrival: Wheelchair iw 13:17 Acuity: WILLIAM 3 iw Triage Assessment: 14:50 General: Appears in no apparent distress. Behavior is calm, cooperative. iw Historical: - Allergies: 13:19 No Known Allergies; iw - Home Meds: 13:19 None [Active]; iw - PMHx: 13:19 "mental illness"; cluster headaches; Diabetes - NIDDM; iw - PSHx: 13:19 Tonsillectomy; ear tubes; iw - Immunization history:: Client reports receiving the 2nd dose of the Covid vaccine. - Social history:: Smoking status: . Screenin:00 Abuse screen: Denies threats or abuse. Denies injuries from another. Nutritional iw screening: No deficits noted. 14:50 Tuberculosis screening: No symptoms or risk factors identified. Fall Risk None iw identified. Assessment: 14:50 General: Appears in no apparent distress. Behavior is calm, cooperative. Pain: iw Complains of pain in left hamstring and left quadriceps. Neuro: Level of Consciousness is awake, alert, obeys commands, Oriented to person, place, time, situation. Respiratory: Respiratory effort is even, unlabored, Respiratory pattern is regular. GI: Bowel sounds Abd is soft X 4 quads. Derm: Skin is intact, is healthy with good turgor. Musculoskeletal: Range of motion: intact in all extremities. Vital Signs: 13:17 BP 111 / 72; Pulse 84; Resp 16; Temp 98.2; Pulse Ox 98% on R/A; Weight 90.72 kg; Height iw 5 ft. 5 in. (165.10 cm); Pain 7/10; 13:17 Body Mass Index 33.28 (90.72 kg, 165.10 cm) iw ED Course: 12:28 Patient arrived in ED. am2 13:19 Triage completed. iw 13:19 Arm band placed on. iw 13:22 Yossi Dobbs PA is PHCP. cp 13:22 Yossi Wiggins MD is Attending Physician. cp 13:54 Lilly Ang, EWELINA is Primary Nurse. iw 14:13 XRAY Femur LEFT In Process Unspecified. EDMS 14:50 Patient has correct armband on for positive identification. iw 15:54 No provider procedures requiring assistance completed. Patient did not have IV access iw during this emergency room visit. Administered Medications: 14:26 Drug: Ketorolac 60 mg Route: IM; Site: left ventrogluteal; iw 15:00 Follow up: Response: No adverse reaction; Pain is decreased iw 14:26 Drug: Flexeril (cyclobenzaprine) 10 mg Route: PO; iw 15:00 Follow up: Response: No adverse reaction; Pain is decreased iw 14:26 Drug: Hydrocodone-Acetaminophen (7.5 mg-325 mg) 1 tabs Route: PO; iw 15:00 Follow up: Response: No adverse reaction; Pain is decreased iw Medication: 15:00 VIS not applicable for this client. iw Outcome: 15:20 Discharge ordered by . cp 15:54 Discharged to home ambulatory. iw 15:54 Condition: good 15:54 Discharge instructions given to patient, family, Instructed on discharge instructions, follow up and referral plans. medication usage, Demonstrated understanding of instructions, follow-up care, medications, Prescriptions given X 2. 15:55 Patient left the ED. iw Signatures: Dispatcher [employer] EDMS Sav, Lilly, EWELINA RN iw Yossi Dobbs PA PA cp Moreno, Amanda am2
--- NOTE | 2021-11-20 15:21 | EDPHYS ---
Physician Documentation [facility] Name: Danyel uGy Age: 35 yrs Sex: Male : 1985 Arrival Date: 11/20/2021 Time: 12:28 Bed 10 Private MD: Yossi Vieira HPI: 11/20 13:45 This 35 yrs old Male presents to ER via Wheelchair with complaints of Leg Pain, cp Abdominal Pain, Low Back Pain. 13:45 The patient presents with pain, that is acute. The complaints affect the left cp quadriceps. Context: resulted from an unknown cause, the patient can fully bear weight, the patient is able to ambulate, with moderate difficulty, Problem is a result from a previous injury: No. Onset: The symptoms/episode began/occurred 1 week(s) ago. Modifying factors: the symptoms are aggravated by movement, weight bearing. Associated signs and symptoms: Pertinent positives: radiating pain into left hip and left lower abdomen and left lower back. Treatment prior to arrival includes: no previous treatment. Patient also c/o pain with urination. Denies penile discharge. Historical: - Allergies: 13:19 No Known Allergies; iw - Home Meds: 13:19 None [Active]; iw - PMHx: 13:19 "mental illness"; cluster headaches; Diabetes - NIDDM; iw - PSHx: 13:19 Tonsillectomy; ear tubes; iw - Immunization history:: Client reports receiving the 2nd dose of the Covid vaccine. - Social history:: Smoking status: . ROS: 13:50 Constitutional: Negative for body aches, chills, fever, poor PO intake. cp 13:50 Eyes: Negative for injury, pain, redness, and discharge. cp 13:50 ENT: Negative for drainage from ear(s), ear pain, sore throat, difficulty swallowing, difficulty handling secretions. 13:50 Cardiovascular: Negative for chest pain, edema, palpitations. 13:50 Respiratory: Negative for cough, shortness of breath, wheezing. 13:50 Abdomen/GI: Positive for abdominal pain, of the left lower quadrant, Negative for vomiting, diarrhea, constipation. 13:50 Back: Positive for radiated pain, of the left low back. 13:50 : Positive for burning with urination, Negative for penile discharge, testicular pain 13:50 MS/extremity: Positive for pain, of the left quadriceps, Negative for injury or acute deformity, decreased range of motion, paresthesias. 13:50 Skin: Negative for cellulitis, rash. 13:50 Neuro: Negative for altered mental status, headache, weakness. 13:50 All other systems are negative. Exam: 13:55 Constitutional: The patient appears in no acute distress, alert, awake, non-toxic, well cp developed, well nourished, uncomfortable. 13:55 Head/Face: Normocephalic, atraumatic. cp 13:55 Eyes: Periorbital structures: appear normal, Conjunctiva: normal, no exudate, no injection, Sclera: no appreciated abnormality, Lids and lashes: appear normal, bilaterally. 13:55 ENT: External ear(s): are unremarkable, Nose: is normal, Mouth: Lips: moist, Oral mucosa: moist, Posterior pharynx: Airway: no evidence of obstruction, patent. 13:55 Neck: ROM/movement: is normal, is supple, without pain, no range of motions limitations. 13:55 Chest/axilla: Inspection: normal. 13:55 Cardiovascular: Rate: normal. 13:55 Respiratory: the patient does not display signs of respiratory distress, Respirations: normal, no use of accessory muscles, no retractions, labored breathing, is not present. 13:55 Abdomen/GI: Inspection: abdomen appears normal, Bowel sounds: active, all quadrants, Palpation: abdomen is soft and non-tender, in all quadrants. 13:55 Back: pain, that is very mild, of the left low back, ROM is normal. 13:55 Musculoskeletal/extremity: Extremities: noted in the left quadriceps: pain, ROM: limited passive range of motion due to pain, in the left hip, Pulses: noted to be 2+ in the left dorsalis pedis artery, the left leg Sensation intact. 13:55 Skin: cellulitis, is not appreciated, no rash present. Vital Signs: 13:17 BP 111 / 72; Pulse 84; Resp 16; Temp 98.2; Pulse Ox 98% on R/A; Weight 90.72 kg; Height iw 5 ft. 5 in. (165.10 cm); Pain 7/10; 13:17 Body Mass Index 33.28 (90.72 kg, 165.10 cm) iw MDM: 13:23 Patient medically screened. cp 14:00 Differential diagnosis: closed fracture, contusion, muscle strain. cp 15:20 Data reviewed: vital signs, nurses notes, lab test result(s), radiologic studies, plain cp films. 15:20 Test interpretation: by ED physician or midlevel provider: plain radiologic studies. cp Counseling: I had a detailed discussion with the patient and/or guardian regarding: the historical points, exam findings, and any diagnostic results supporting the discharge/admit diagnosis, lab results, radiology results, to return to the emergency department if symptoms worsen or persist or if there are any questions or concerns that arise at home. Response to treatment: the patient's symptoms have markedly improved after treatment, and as a result, I will discharge patient. 11/20 15:19 Order name: Urine Dipstick-Ancillary EDAK 11/20 13:35 Order name: XRAY Femur LEFT; Complete Time: 14:48 cp 11/20 14:48 Interpretation: Reviewed. cp 11/20 13:35 Order name: Urine Dipstick-Ancillary (obtain specimen) cp 11/20 15:20 Order name: Barrie Wrap; Complete Time: 20:24 cp 11/20 15:20 Order name: Crutches; Complete Time: 20:24 cp Administered Medications: 14:26 Drug: Ketorolac 60 mg Route: IM; Site: left ventrogluteal; iw 15:00 Follow up: Response: No adverse reaction; Pain is decreased iw 14:26 Drug: Flexeril (cyclobenzaprine) 10 mg Route: PO; iw 15:00 Follow up: Response: No adverse reaction; Pain is decreased iw 14:26 Drug: Hydrocodone-Acetaminophen (7.5 mg-325 mg) 1 tabs Route: PO; iw 15:00 Follow up: Response: No adverse reaction; Pain is decreased iw Disposition Summary: 11/20/21 15:20 Discharge Ordered Location: Home cp Problem: new cp Symptoms: have improved cp Condition: Stable cp Diagnosis - Pain in left leg - anterior upper leg cp Followup: cp - With: Private Physician - When: 2 - 3 days - Reason: Recheck today's complaints Discharge Instructions: - Discharge Summary Sheet cp - Quadriceps Strain cp Forms: - Work release form iw - Medication Reconciliation Form cp - Thank You Letter cp - Antibiotic Education cp - Prescription Opioid Use cp Prescriptions: - Cyclobenzaprine 10 mg Oral Tablet - take 1 tablet by ORAL route every 8 hours As needed; 30 tablet; Refills: 0, cp Product Selection Permitted - Diclofenac Sodium 75 mg Oral Tablet Sustained Release - take 1 tablet by ORAL route 2 times per day; 30 tablet; Refills: 0, Product cp Selection Permitted Signatures: Dispatcher [employer] Lilly Gomez RN RN Yossi Benito PA PA cp
[2021-11-20 16:04] VITALS: BP 111/72; TEMP 98.2; O2SAT 98
== END 2021-11-20 15:55 | disposition home or self-care (01) ==
LOC: ER 12:19
DX: M79.605 Pain in left leg (principal); E11.9 Type 2 diabetes mellitus without complications
CPT/HCPCS: 81003